=== PATIENT | female | born 1950 | race Hispanic/Latino ===

== ENCOUNTER 2018-10-17 10:39 | Inpatient (IN) | payer MEDICARE, OTHER ==
[2018-10-17] MEDS ORDERED: XYLOCAINE CARDIAC IV ONE (10:42)
[2018-10-17] MEDS ORDERED: ZEMURON IV ONE (10:42)
[2018-10-17] MEDS ORDERED: AMIDATE IV ONE (10:42)
[2018-10-17] MEDS ORDERED: NACL 0.9% 1000 ML IV ONE (10:53)
[2018-10-17] MEDS ORDERED: DECADRON IV ONE (10:55)
[2018-10-17] MEDS ORDERED: NACL 0.9% 500 ML IV PRN (10:57)
[2018-10-17] MEDS ORDERED: VASELINE LIP THERAPY TP PRN (10:57)
[2018-10-17] MEDS ORDERED: ARTIFICIAL TEARS OPHTH OINT OU PRN (10:57)
[2018-10-17] MEDS ORDERED: SUBLIMAZE IV PRN (10:57)
--- NOTE | 2018-10-17 10:59 | Emergency Department Report ---
ED General Adult HPI - General Chief complaint: Altered Mental Status Stated complaint: STROKE Time Seen by Provider: 10/17/18 10:52 Source: family, EMS (verbal report received from EMS.ems notes not available at time of chart dictation), RN notes reviewed Limitations: Altered Mental Status, Physical Limitation - History of Present Illness Initial comments: tHis is a 68-year-old female who typically follows with the [facility]. Patient has a past medical history of chronic respiratory failure, reported COPD, reported diabetes, high cholesterol, and uterine cancer as well as hypertension. The patient is brought to the hospital by emergency medical services as an out of hospital respiratory distress with altered mental status. As per EMS, last well time is at 12:00 PM yesterday. They report no hypoglycemia in the field. Upon arrival to the emergency room, the patient is somnolent, obtunded, with a Yogi Coma Scale of 3. She receives [id number] ventilation and is intubated using a video laryngoscopy and the assistance of a bougie catheter device. After she is intubated, the patients chest wall and abdomen were compressed, to allow for release of trapped air. Shortly thereafter, the airline pilot balloon malfunctioned on the initial endotracheal tube. Repeat video laryngoscopy was performed, and another 7.5 endotracheal tube was inserted over a bougie catheter, with direct visualization of the tube passing through the cords. Patient had good color change bilaterally, and tube placement was also confirmed by auscultation as well as post intubation x-ray of the chest. Patient was found to be hypothermic with a core temperature of 91.4. EMS indicated that they were instructed to call a code stroke prior to arrival as per the direction of their senior medical technologist. A noncontrast CT scan of the brain was negative for acute disease. EMS indica colleen that the patient may have a history of aortic disease, and therefore a noncontrast CT scan of the abdomen and pelvis was obtained, which demonstrated an unremarkable aorta, but an unanticipated right-sided pneumothorax. Concurrently, the patient became progressively more difficult to ventilate, and she was found to have high pressures. An emergent critical care consult was requested for pneumothorax, as well as respiratory failure, and abnormal ventilator parameters. Patient was normotensive, without evidence of imminent hemodynamic collapse. The critical care physician, Dr. Yung, recommended emergent placement of a chest tube. Therefore, an emergent right sided sterile pigtail catheter was placed in the right hemithorax, mid axillary line, superior to the eighth rib As soon as the pigtail catheter was placed, saturations improved to 97%. Shortly thereafter, family arrived. They were extensively briefed about the patient's numerous conditions, and her current medical status. As per verbal report from her daughter and , the patient has indicated that she would like to be DO NOT RESUSCITATE, DO NOT INTUBATE. However, this information was not available from the report from EMS, and the patient did not have this paperwork on her person, and there was no javier cation of this goal of care with the initial available information. Explained to family need for the aforementioned medical interventions given lack of paperwork, documentation, and lack of prior visits. Family has articulated understanding. They have signed DO NOT RESUSCITATE, DO NOT INTUBATE paperwork in the emergency room. indicates that he would not want any further invasive testing. They are amenable to IV fluids, antibiotics and supportive care at this time. Discussed with the [facility] physician, Dr. Gonzalez, who has authorized patient to be admitted to this facility given her numerous abnormalities. It is my pain that the patient is not currently medically suitable or stable for transport. Clinically doubt an acute stroke, especially as the patient's laboratory studies have demonstrated hypercarbic respiratory failure, and her numerous abnormalities, including aforementioned hypercarbic respiratory failure, pneumothorax and hypothermia. The patient is not a TPA candidate as she presented more than 4.5 hours after her last known well time. In addition, the patient's respiratory status was complicated, requiring numerous interventions and reevaluation as before her respiratory status could be stabilized. Given the aforementioned, it is my opinion that the patient would not be a suitable endovascular candidate as her emergent stabilization took her out of e 24-hour window for endovascular intervention. In addition, she has numerous other abnormalities which would adequately explain her altered mental status. In addition, it is my opinion that given her hypercarbia, pneumothorax, hypothermia is most likely secondary to environmental exposure, rather than bacteremia or meningitis. This, coupled with the family's articulated requests to avoid further invasive diagnostic testing, is why lumbar puncture will not be performed. The [facility] physician, Dr. German, will accept the patient to the medical service. Condition is critical. Laboratory studies have demonstrated hyperkalemia, and hyperglycemia, which will be treated medically. -: unknown Radiation: other Quality: other Consistency: other Improves with: other Worsens with: other Associated Symptoms: other - Related Data Home Medications Medication Instructions Recorded Confirmed Last Taken Albuterol Sulfate [Ventolin HFA] 2 puff IH Q4-6H PRN 10/17/18 10/17/18 Unknown Atorvastatin Calcium [Lipitor] 40 mg PO QPM 10/17/18 10/17/18 Unknown Fluticasone/Salmeterol [Advair 1 each IH BID 10/17/18 10/17/18 Unknown 500-50 Diskus] Ipratropium/Albuterol Sulfate 1 spray IH QID 10/17/18 10/17/18 Unknown [Combivent Respimat] Labetalol [Normodyne] 200 mg PO BID 10/17/18 10/17/18 Unknown Lisinopril/Hydrochlorothiazide 1 each PO BID 10/17/18 10/17/18 Unknown [Zestoretic 20-12.5 mg] Potassium Chloride [K-Tab ER] 10 meq PO QDAY 10/17/18 10/17/18 Unknown Allergies Allergy/AdvReac Type Severity Reaction Status Date / Time No Known Allergies Allergy Unverified 10/17/18 10:44 ED Review of Systems ROS: Stated complaint: STROKE Other details as noted in HPI Comment: Unobtainable due to pts medical conditions Constitutional: weakness Neurological: confusion ED Past Medical Hx - Medications Home Medications: Home Medications Medication Instructions Recorded Confirmed Last Taken Type Albuterol Sulfate [Ventolin HFA] 2 puff IH Q4-6H PRN 10/17/18 10/17/18 Unknown History Atorvastatin Calcium [Lipitor] 40 mg PO QPM 10/17/18 10/17/18 Unknown History Fluticasone/Salmeterol [Advair 1 each IH BID 10/17/18 10/17/18 Unknown History 500-50 Diskus] Ipratropium/Albuterol Sulfate 1 spray IH QID 10/17/18 10/17/18 Unknown History [Combivent Respimat] Labetalol [Normodyne] 200 mg PO BID 10/17/18 10/17/18 Unknown History Lisinopril/Hydrochlorothiazide 1 each PO BID 10/17/18 10/17/18 Unknown History [Zestoretic 20-12.5 mg] Potassium Chloride [K-Tab ER] 10 meq PO QDAY 10/17/18 10/17/18 Unknown History ED Physical Exam - General Limitations: Altered Mental Status, Physical Limitation General appearance: obtunded - Head Head exam: Present: atraumatic, normocephalic - Eye Eye exam: Present: normal appearance, PERRL - ENT ENT exam: Present: normal orophraynx, mucous membranes moist, normal external ear exam, other (copious secretions noted in the oropharynx) - Neck Neck exam: Present: normal inspection. Absent: tenderness, meningismus - Respiratory Respiratory exam: Present: respiratory distress, wheezes, rhonchi, decreased breath sounds - Cardiovascular Cardiovascular Exam: Present: normal rhythm, tachycardia, normal heart sounds. Absent: systolic murmur, diastolic murmur, rubs, gallop - GI/Abdominal GI/Abdominal exam: Present: soft, distended. Absent: tenderness, guarding, rebound, rigid, pulsatile mass - Rectal Rectal exam: Present: normal inspection - External exam: Present: normal external exam - Extremities Exam Extremities exam: Present: normal inspection, other (2+ pulses noted in the bilateral upper, lower extremities. Compartments soft. No long bony tenderness. The pelvis is stable.) - Back Exam Back exam: Present: normal inspection. Absent: tenderness, CVA tenderness (R), paraspinal tenderness, vertebral tenderness - Neurological Exam Neurological exam: Present: altered (initial presentation Yogi Coma Scale of 3), other (detailed neurologic examination not possible secondary to altered mental status.) - Psychiatric Psychiatric exam: Present: other (patient nonverbal) - Skin Skin exam: Present: warm, dry, intact, normal color. Absent: rash ED Course Vital Signs 10/17/18 10/17/18 10/17/18 11:07 11:16 11:30 Temperature 97.4 F L Pulse Rate 113 H 105 H 96 H Pulse Rate [ Anterior Bilateral Throughout] Respiratory 16 12 12 Rate Respiratory Rate [Anterior Bilateral Throughout] Blood Pressure 112/83 O2 Sat by Pulse 100 100 Oximetry 10/17/18 10/17/18 10/17/18 11:46 12:00 12:05 Temperature Pulse Rate 90 94 H Pulse Rate [ 91 H Anterior Bilateral Throughout] Respiratory 21 20 Rate Respiratory 14 Rate [Anterior Bilateral Throughout] Blood Pressure 205/106 154/88 O2 Sat by Pulse 100 98 Oximetry 10/17/18 10/17/18 10/17/18 12:12 12:39 12:46 Temperature Pulse Rate 89 86 86 Pulse Rate [ Anterior Bilateral Throughout] Respiratory 13 17 Rate Respiratory Rate [Anterior Bilateral Throughout] Blood Pressure 184/97 184/97 136/70 O2 Sat by Pulse 95 100 96 Oximetry 10/17/18 10/17/18 10/17/18 13:00 13:16 13:30 Temperature Pulse Rate 85 88 Pulse Rate [ Anterior Bilateral Throughout] Respiratory 20 15 21 Rate Respiratory Rate [Anterior Bilateral Throughout] Blood Pressure 152/72 138/63 120/65 O2 Sat by Pulse 83 L 76 L 96 Oximetry 10/17/18 10/17/18 10/17/18 13:45 14:00 14:15 Temperature Pulse Rate 83 90 91 H Pulse Rate [ Anterior Bilateral Throughout] Respiratory 7 L 19 17 Rate Respiratory Rate [Anterior Bilateral Throughout] Blood Pressure 124/71 126/75 116/69 O2 Sat by Pulse 94 97 96 Oximetry 10/17/18 10/17/18 10/17/18 14:30 14:45 15:00 Temperature Pulse Rate 94 H 97 H 96 H Pulse Rate [ Anterior Bilateral Throughout] Respiratory 17 18 15 Rate Respiratory Rate [Anterior Bilateral Throughout] Blood Pressure 123/76 116/68 104/62 O2 Sat by Pulse 94 96 94 Oximetry 10/17/18 10/17/18 10/17/18 15:15 15:30 15:45 Temperature Pulse Rate 102 H 101 H 101 H Pulse Rate [ Anterior Bilateral Throughout] Respiratory 25 H 25 H 25 H Rate Respiratory Rate [Anterior Bilateral Throughout] Blood Pressure 114/66 108/62 103/57 O2 Sat by Pulse 92 94 91 Oximetry 10/17/18 10/17/18 10/17/18 16:30 16:36 16:46 Temperature Pulse Rate 98 H 97 H 94 H Pulse Rate [ Anterior Bilateral Throughout] Respiratory 25 H 24 Rate Respiratory Rate [Anterior Bilateral Throughout] Blood Pressure 115/67 115/67 119/77 O2 Sat by Pulse 100 100 100 Oximetry 10/17/18 10/17/18 10/17/18 17:00 17:15 17:30 Temperature Pulse Rate 93 H 94 H 86 Pulse Rate [ Anterior Bilateral Throughout] Respiratory 25 H 25 H 24 Rate Respiratory Rate [Anterior Bilateral Throughout] Blood Pressure 119/76 111/70 100/59 O2 Sat by Pulse 100 99 98 Oximetry 10/17/18 10/17/18 10/17/18 17:39 17:45 18:00 Temperature Pulse Rate 92 H 93 H 93 H Pulse Rate [ Anterior Bilateral Throughout] Respiratory 24 25 H Rate Respiratory Rate [Anterior Bilateral Throughout] Blood Pressure 111/70 101/63 100/63 O2 Sat by Pulse 98 97 96 Oximetry 10/17/18 10/17/18 10/17/18 18:15 18:30 18:45 Temperature Pulse Rate 91 H 94 H 96 H Pulse Rate [ Anterior Bilateral Throughout] Respiratory 25 H 24 24 Rate Respiratory Rate [Anterior Bilateral Throughout] Blood Pressure 99/61 108/66 111/70 O2 Sat by Pulse Oximetry 10/17/18 10/17/18 10/17/18 19:00 19:15 19:30 Temperature Pulse Rate 96 H 94 H 94 H Pulse Rate [ Anterior Bilateral Throughout] Respiratory 25 H 25 H 25 H Rate Respiratory Rate [Anterior Bilateral Throughout] Blood Pressure 104/65 103/62 98/60 O2 Sat by Pulse 93 93 Oximetry 10/17/18 10/17/18 10/17/18 19:38 19:45 20:00 Temperature 99.3 F Pulse Rate 94 H 92 H Pulse Rate [ Anterior Bilateral Throughout] Respiratory 25 H 25 H Rate Respiratory Rate [Anterior Bilateral Throughout] Blood Pressure 96/61 96/63 O2 Sat by Pulse 94 Oximetry 10/17/18 10/17/18 10/17/18 20:15 20:30 20:45 Temperature Pulse Rate 91 H 91 H 88 Pulse Rate [ Anterior Bilateral Throughout] Respiratory 25 H 25 H 22 Rate Respiratory Rate [Anterior Bilateral Throughout] Blood Pressure 102/62 94/60 96/58 O2 Sat by Pulse 94 93 98 Oximetry 10/17/18 10/17/18 10/17/18 21:00 21:15 21:30 Temperature Pulse Rate 89 84 98 H Pulse Rate [ Anterior Bilateral Throughout] Respiratory 25 H 23 27 H Rate Respiratory Rate [Anterior Bilateral Throughout] Blood Pressure 97/60 97/58 105/66 O2 Sat by Pulse 93 93 94 Oximetry 10/17/18 10/17/18 10/17/18 21:45 22:00 22:15 Temperature Pulse Rate 88 88 89 Pulse Rate [ Anterior Bilateral Throughout] Respiratory 25 H 25 H 25 H Rate Respiratory Rate [Anterior Bilateral Throughout] Blood Pressure 94/59 100/58 98/60 O2 Sat by Pulse 93 93 93 Oximetry 10/17/18 10/17/18 10/17/18 22:30 22:45 23:00 Temperature Pulse Rate 92 H 92 H 89 Pulse Rate [ Anterior Bilateral Throughout] Respiratory 25 H 25 H 23 Rate Respiratory Rate [Anterior Bilateral Throughout] Blood Pressure 98/61 102/63 105/63 O2 Sat by Pulse 92 Oximetry 10/17/18 10/17/18 10/18/18 23:04 23:50 00:00 Temperature 99.7 F H Pulse Rate 92 H 103 H Pulse Rate [ Anterior Bilateral Throughout] Respiratory 16 Rate Respiratory Rate [Anterior Bilateral Throughout] Blood Pressure 105/63 O2 Sat by Pulse 96 100 Oximetry 10/18/18 00:22 Temperature Pulse Rate 103 H Pulse Rate [ Anterior Bilateral Throughout] Respiratory Rate Respiratory Rate [Anterior Bilateral Throughout] Blood Pressure O2 Sat by Pulse Oximetry - Chest Tube Chest Tube Location: superior to rib 8 Size of [place] Tube (cm): 10 Chest Tube Procedure: betadine prep, sterile drapes applied, sterile dressing a pplied Anesthesia: 1% Lidocaine w/ Epi Volume Anesthetic (ccs): 10 Hawkins of Air [place]: No Number of Attempts: 1 Tube Drainage: see nurses notes Tube Sutured to Skin: Yes - Intubation Time Out Performed: No (emergent) Sedative: Etomidate Mg Given: 20 Paralytic: Rocuronium Mg Given: 100 Laryngoscope: fiberoptic video scope Size: 3 Assist Device Used: Bougie ET Tube Size: 7.5 Other Airway Intervention: see history of present illness Tube Secured Depth (cm): 23 Tube Secured Location: teeth Tube Placement Confirmation: visualized tube passing t, equal breath sounds bilat, no breath sounds over epi, confirmation by capnometr Patient Tolerated Procedure: well Intubation Complications: difficult intubation, other (see history of present illness) ED Medical Decision Making - Lab Data Result diagrams: 10/17/18 11:31 10/18/18 16:15 Vital Signs 10/17/18 10/17/18 10/17/18 11:07 11:16 11:30 Temperature 97.4 F L Pulse Rate 113 H 105 H 96 H Pulse Rate [ Anterior Bilateral Throughout] Respiratory 16 12 12 Rate Respiratory Rate [Anterior Bilateral Throughout] Blood Pressure 112/83 O2 Sat by Pulse 100 100 Oximetry 10/17/18 10/17/18 10/17/18 11:46 12:00 12:05 Temperature Pulse Rate 90 94 H Pulse Rate [ 91 H Anterior Bilateral Throughout] Respiratory 21 20 Rate Respiratory 14 Rate [Anterior Bilateral Throughout] Blood Pressure 205/106 154/88 O2 Sat by Pulse 100 98 Oximetry 10/17/18 10/17/18 10/17/18 12:12 12:39 12:46 Temperature Pulse Rate 89 86 86 Pulse Rate [ Anterior Bilateral Throughout] Respiratory 13 17 Rate Respiratory Rate [Anterior Bilateral Throughout] Blood Pressure 184/97 184/97 136/70 O2 Sat by Pulse 95 100 96 Oximetry 10/17/18 10/17/18 10/17/18 13:00 13:16 13:30 Temperature Pulse Rate 85 88 Pulse Rate [ Anterior Bilateral Throughout] Respiratory 20 15 21 Rate Respiratory Rate [Anterior Bilateral Throughout] Blood Pressure 152/72 138/63 120/65 O2 Sat by Pulse 83 L 76 L 96 Oximetry 10/17/18 10/17/18 13:45 14:00 Temperature Pulse Rate 83 90 Pulse Rate [ Anterior Bilateral Throughout] Respiratory 7 L 19 Rate Respiratory Rate [Anterior Bilateral Throughout] Blood Pressure 124/71 126/75 O2 Sat by Pulse 94 97 Oximetry Lab Results 10/17/18 10/17/18 10/17/18 Range/Units 11:12 11:31 11:31 WBC 9.2 (4.5-11.0) K/mm3 RBC 4.75 (3.65-5.03) M/mm3 Hgb 13.7 (10.1-14.3) gm/dl Hct 43.2 H (30.3-42.9) % MCV 91 (79-97) fl MCH 29 (28-32) pg MCHC 32 (30-34) % RDW 16.2 H (13.2-15.2) % Plt Count 191 (140-440) K/mm3 Add Manual Diff Complete Total Counted 100 Seg Neutrophils % Diesel Pile 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 Operator Seg Neuts % (Manual) 93.0 H (40.0-70.0) % Band Neutrophils % 0 % Lymphocytes % (Manual) 4.0 L (13.4-35.0) % Reactive Lymphs % (Man) 0 % Monocytes % (Manual) 2.0 (0.0-7.3) % Eosinophils % (Manual) 0 (0.0-4.3) % Basophils % (Manual) 0 (0.0-1.8) % Metamyelocytes % 0 % Myelocytes % 1.0 % Promyelocytes % 0 % Blast Cells % 0 % Nucleated RBC % Not Reportable Seg Neutrophils # Man 8.6 H (1.8-7.7) K/mm3 Band Neutrophils # 0.0 K/mm3 Lymphocytes # (Manual) 0.4 L (1.2-5.4) K/mm3 Abs React Lymphs (Man) 0.0 K/mm3 Monocytes # (Manual) 0.2 (0.0-0.8) K/mm3 Eosinophils # (Manual) 0.0 (0.0-0.4) K/mm3 Basophils # (Manual) 0.0 (0.0-0.1) K/mm3 Metamyelocytes # 0.0 K/mm3 Myelocytes # 0.1 K/mm3 Promyelocytes # 0.0 K/mm3 Blast Cells # 0.0 K/mm3 WBC Morphology Not Reportable Hypersegmented Neuts Not Reportable Hyposegmented Neuts Not Reportable Hypogranular Neuts Not Reportable Smudge Cells Not Reportable Toxic Granulation Not Reportable Toxic Vacuolation Not Reportable Dohle Bodies Not Reportable Pelger-Huet Anomaly Not Reportable Harshad Rods Not Reportable Platelet Estimate Consistent w auto Clumped Platelets Not Reportable Plt Clumps, EDTA Not Reportable Large Platelets Not Reportable Giant Platelets Not Reportable Platelet Satelliting Not Reportable Plt Morphology Comment Not Reportable RBC Morphology Not Reportable Dimorphic RBCs Not Reportable Polychromasia Not Reportable Hypochromasia Not Reportable Poikilocytosis Not Reportable Anisocytosis 1+ Microcytosis Not Reportable Macrocytosis Not Reportable Spherocytes Not Reportable Pappenheimer Bodies Not Reportable Sickle Cells Not Reportable Target Cells Not Reportable Tear Drop Cells Not Reportable Ovalocytes Not Reportable Helmet Cells Not Reportable [place] Bodies Not Reportable Erskine Rings Not Reportable [place] Cells Not Reportable Bite Cells Not Reportable Crenated Cell Not Reportable Elliptocytes Not Reportable Acanthocytes (Spur) Not Reportable Rouleaux Not Reportable Hemoglobin C Crystals Not Reportable Schistocytes Not Reportable Malaria parasites Not Reportable Reji Bodies Not Reportable Hem Pathologist Commnt No PT 14.1 (12.2-14.9) Sec. INR 1.05 (0.87-1.13) APTT 20.1 L (24.2-36.6) Sec. Thrombin Time 17.0 (15.1-19.6) Sec. POC ABG pH (7.35-7.45) POC ABG pCO2 (35-45) POC ABG pO2 (80-105) FiO2 % Sodium (137-145) mmol/L Potassium (3.6-5.0) mmol/L Chloride (98-107) mmol/L Carbon Dioxide (22-30) mmol/L Anion Gap mmol/L BUN (7-17) mg/dL Creatinine (0.7-1.2) mg/dL Estimated GFR ml/min BUN/Creatinine Ratio % Glucose (65-100) mg/dL Lactic Acid (0.7-2.0) mmol/L Calcium (8.4-10.2) mg/dL Total Bilirubin (0.1-1.2) mg/dL AST (5-40) units/L ALT (7-56) units/L Alkaline Phosphatase (35-129) units/L Troponin T (0.00-0.029) ng/mL Total Protein (6.3-8.2) g/dL Albumin (3.9-5) g/dL Albumin/Globulin Ratio % Urine Color Yellow (Yellow) Urine Turbidity Clear (Clear) Urine pH 6.0 (5.0-7.0) Ur Specific [place] 1.025 (1.003-1.030) Urine Protein >2000 mg dl (Negative) mg/dL Urine Glucose (UA) >=500 (Negative) mg/dL Urine Ketones Tr (Negative) mg/dL Urine Blood Neg (Negative) Urine Nitrite Neg (Negative) Urine Bilirubin Neg (Negative) Urine Urobilinogen < 2.0 (<2.0) mg/dL Ur Leukocyte Esterase Neg (Negative) Urine WBC (Auto) 4.0 (0.0-6.0) /HPF Urine RBC (Auto) 2.0 (0.0-6.0) /HPF U Epithel Cells (Auto) < 1.0 (0-13.0) /HPF Hyaline Casts 1 /LPF Urine Mucus Few /HPF Salicylates (2.8-20.0) mg/dL Acetaminophen (10.0-30.0) ug/mL 10/17/18 10/17/18 10/17/18 Range/Units 11:31 11:31 11:31 WBC (4.5-11.0) K/mm3 RBC (3.65-5.03) M/mm3 Hgb (10.1-14.3) gm/dl Hct (30.3-42.9) % MCV (79-97) fl MCH (28-32) pg MCHC (30-34) % RDW (13.2-15.2) % Plt Count (140-440) K/mm3 Add Manual Diff Total Counted Seg Neutrophils % Seg Neuts % (Manual) (40.0-70.0) % Band Neutrophils % % Lymphocytes % (Manual) (13.4-35.0) % Reactive Lymphs % (Man) % Monocytes % (Manual) (0.0-7.3) % Eosinophils % (Manual) (0.0-4.3) % Basophils % (Manual) (0.0-1.8) % Metamyelocytes % % Myelocytes % % Promyelocytes % % Blast Cells % % Nucleated RBC % Seg Neutrophils # Man (1.8-7.7) K/mm3 Band Neutrophils # K/mm3 Lymphocytes # (Manual) (1.2-5.4) K/mm3 Abs React Lymphs (Man) K/mm3 Monocytes # (Manual) (0.0-0.8) K/mm3 Eosinophils # (Manual) (0.0-0.4) K/mm3 Basophils # (Manual) (0.0-0.1) K/mm3 Metamyelocytes # K/mm3 Myelocytes # K/mm3 Promyelocytes # K/mm3 Blast Cells # K/mm3 WBC Morphology Hypersegmented Neuts Hyposegmented Neuts Hypogranular Neuts Smudge Cells Toxic Granulation Toxic Vacuolation Dohle Bodies Pelger-Huet Anomaly Harshad Rods Platelet Estimate Clumped Platelets Plt Clumps, EDTA Large Platelets Giant Platelets Platelet Satelliting Plt Morphology Comment RBC Morphology Dimorphic RBCs Polychromasia Hypochromasia Poikilocytosis Anisocytosis Microcytosis Macrocytosis Spherocytes Pappenheimer Bodies Sickle Cells Target Cells Tear Drop Cells Ovalocytes Helmet Cells Urban-[place] Bodies Erskine Rings [place] Cells Bite Cells Crenated Cell Elliptocytes Acanthocytes (Spur) Rouleaux Hemoglobin C Crystals Schistocytes Malaria parasites Reji Bodies Hem Pathologist Commnt PT (12.2-14.9) Sec. INR (0.87-1.13) APTT (24.2-36.6) Sec. Thrombin Time (15.1-19.6) Sec. POC ABG pH (7.35-7.45) POC ABG pCO2 (35-45) POC ABG pO2 (80-105) FiO2 % Sodium 143 (137-145) mmol/L Potassium 5.8 H (3.6-5.0) mmol/L Chloride 86.5 L (98-107) mmol/L Carbon Dioxide 53 H* (22-30) mmol/L Anion Gap 9 mmol/L BUN 14 (7-17) mg/dL Creatinine 0.4 L (0.7-1.2) mg/dL Estimated GFR > 60 ml/min BUN/Creatinine Ratio 35 % Glucose 347 H (65-100) mg/dL Lactic Acid 1.20 (0.7-2.0) mmol/L Calcium 9.7 (8.4-10.2) mg/dL Total Bilirubin 0.50 (0.1-1.2) mg/dL AST 18 (5-40) units/L ALT 16 (7-56) units/L Alkaline Phosphatase 125 (35-129) units/L Troponin T < 0.010 (0.00-0.029) ng/mL Total Protein 7.9 (6.3-8.2) g/dL Albumin 4.3 (3.9-5) g/dL Albumin/Globulin Ratio 1.2 % Urine Color (Yellow) Urine Turbidity (Clear) Urine pH (5.0-7.0) Ur Specific [place] (1.003-1.030) Urine Protein (Negative) mg/dL Urine Glucose (UA) (Negative) mg/dL Urine Ketones (Negative) mg/dL Urine Blood (Negative) Urine Nitrite (Negative) Urine Bilirubin (Negative) Urine Urobilinogen (<2.0) mg/dL Ur Leukocyte Esterase (Negative) Urine WBC (Auto) (0.0-6.0) /HPF Urine RBC (Auto) (0.0-6.0) /HPF U Epithel Cells (Auto) (0-13.0) /HPF Hyaline Casts /LPF Urine Mucus /HPF Salicylates (2.8-20.0) mg/dL Acetaminophen (10.0-30.0) ug/mL 10/17/18 10/17/18 10/17/18 Range/Units 11:31 11:31 13:49 WBC (4.5-11.0) K/mm3 RBC (3.65-5.03) M/mm3 Hgb (10.1-14.3) gm/dl Hct (30.3-42.9) % MCV (79-97) fl MCH (28-32) pg MCHC (30-34) % RDW (13.2-15.2) % Plt Count (140-440) K/mm3 Add Manual Diff Total Counted Seg Neutrophils % Seg Neuts % (Manual) (40.0-70.0) % Band Neutrophils % % Lymphocytes % (Manual) (13.4-35.0) % Reactive Lymphs % (Man) % Monocytes % (Manual) (0.0-7.3) % Eosinophils % (Manual) (0.0-4.3) % Basophils % (Manual) (0.0-1.8) % Metamyelocytes % % Myelocytes % % Promyelocytes % % Blast Cells % % Nucleated RBC % Seg Neutrophils # Man (1.8-7.7) K/mm3 Band Neutrophils # K/mm3 Lymphocytes # (Manual) (1.2-5.4) K/mm3 Abs React Lymphs (Man) K/mm3 Monocytes # (Manual) (0.0-0.8) K/mm3 Eosinophils # (Manual) (0.0-0.4) K/mm3 Basophils # (Manual) (0.0-0.1) K/mm3 Metamyelocytes # K/mm3 Myelocytes # K/mm3 Promyelocytes # K/mm3 Blast Cells # K/mm3 WBC Morphology Hypersegmented Neuts Hyposegmented Neuts Hypogranular Neuts Smudge Cells Toxic Granulation Toxic Vacuolation Dohle Bodies Pelger-Huet Anomaly Harshad Rods Platelet Estimate Clumped Platelets Plt Clumps, EDTA Large Platelets Giant Platelets Platelet Satelliting Plt Morphology Comment RBC Morphology Dimorphic RBCs Polychromasia Hypochromasia Poikilocytosis Anisocytosis Microcytosis Macrocytosis Spherocytes Pappenheimer Bodies Sickle Cells Target Cells Tear Drop Cells Ovalocytes Helmet Cells [place] Bodies [place] Rings [place] Cells Bite Cells Crenated Cell Elliptocytes Acanthocytes (Spur) Rouleaux Hemoglobin C Crystals Schistocytes Malaria parasites Reji Bodies Hem Pathologist Commnt PT (12.2-14.9) Sec. INR (0.87-1.13) APTT (24.2-36.6) Sec. Thrombin Time (15.1-19.6) Sec. POC ABG pH 7.168 L (7.35-7.45) POC ABG pCO2 > 130.0 H (35-45) POC ABG pO2 67 L (80-105) FiO2 70 % Sodium (137-145) mmol/L Potassium (3.6-5.0) mmol/L Chloride (98-107) mmol/L Carbon Dioxide (22-30) mmol/L Anion Gap mmol/L BUN (7-17) mg/dL Creatinine (0.7-1.2) mg/dL Estimated GFR ml/min BUN/Creatinine Ratio % Glucose (65-100) mg/dL Lactic Acid (0.7-2.0) mmol/L Calcium (8.4-10.2) mg/dL Total Bilirubin (0.1-1.2) mg/dL AST (5-40) units/L ALT (7-56) units/L Alkaline Phosphatase (35-129) units/L Troponin T (0.00-0.029) ng/mL Total Protein (6.3-8.2) g/dL Albumin (3.9-5) g/dL Albumin/Globulin Ratio % Urine Color (Yellow) Urine Turbidity (Clear) Urine pH (5.0-7.0) Ur Specific [place] (1.003-1.030) Urine Protein (Negative) mg/dL Urine Glucose (UA) (Negative) mg/dL Urine Ketones (Negative) mg/dL Urine Blood (Negative) Urine Nitrite (Negative) Urine Bilirubin (Negative) Urine Urobilinogen (<2.0) mg/dL Ur Leukocyte Esterase (Negative) Urine WBC (Auto) (0.0-6.0) /HPF Urine RBC (Auto) (0.0-6.0) /HPF U Epithel Cells (Auto) (0-13.0) /HPF Hyaline Casts /LPF Urine Mucus /HPF Salicylates < 0.3 L (2.8-20.0) mg/dL Acetaminophen < 5.0 L (10.0-30.0) ug/mL 10/17/18 Range/Units 13:59 WBC (4.5-11.0) K/mm3 RBC (3.65-5.03) M/mm3 Hgb (10.1-14.3) gm/dl Hct (30.3-42.9) % MCV (79-97) fl MCH (28-32) pg MCHC (30-34) % RDW (13.2-15.2) % Plt Count (140-440) K/mm3 Add Manual Diff Total Counted Seg Neutrophils % Seg Neuts % (Manual) (40.0-70.0) % Band Neutrophils % % Lymphocytes % (Manual) (13.4-35.0) % Reactive Lymphs % (Man) % Monocytes % (Manual) (0.0-7.3) % Eosinophils % (Manual) (0.0-4.3) % Basophils % (Manual) (0.0-1.8) % Metamyelocytes % % Myelocytes % % Promyelocytes % % Blast Cells % % Nucleated RBC % Seg Neutrophils # Man (1.8-7.7) K/mm3 Band Neutrophils # K/mm3 Lymphocytes # (Manual) (1.2-5.4) K/mm3 Abs React Lymphs (Man) K/mm3 Monocytes # (Manual) (0.0-0.8) K/mm3 Eosinophils # (Manual) (0.0-0.4) K/mm3 Basophils # (Manual) (0.0-0.1) K/mm3 Metamyelocytes # K/mm3 Myelocytes # K/mm3 Promyelocytes # K/mm3 Blast Cells # K/mm3 WBC Morphology Hypersegmented Neuts Hyposegmented Neuts Hypogranular Neuts Smudge Cells Toxic Granulation Toxic Vacuolation Dohle Bodies Pelger-Huet Anomaly Harshad Rods Platelet Estimate Clumped Platelets Plt Clumps, EDTA Large Platelets Giant Platelets Platelet Satelliting Plt Morphology Comment RBC Morphology Dimorphic RBCs Polychromasia Hypochromasia Poikilocytosis Anisocytosis Microcytosis Macrocytosis Spherocytes Pappenheimer Bodies Sickle Cells Target Cells Tear Drop Cells Ovalocytes Helmet Cells [place] Bodies [place] Rings [place] Cells Bite Cells Crenated Cell Elliptocytes Acanthocytes (Spur) Rouleaux Hemoglobin C Crystals Schistocytes Malaria parasites Reji Bodies Hem Pathologist Commnt PT (12.2-14.9) Sec. INR (0.87-1.13) APTT (24.2-36.6) Sec. Thrombin Time (15.1-19.6) Sec. POC ABG pH 7.176 L (7.35-7.45) POC ABG pCO2 > 130.0 H (35-45) POC ABG pO2 67 L (80-105) FiO2 70 % Sodium (137-145) mmol/L Potassium (3.6-5.0) mmol/L Chloride (98-107) mmol/L Carbon Dioxide (22-30) mmol/L Anion Gap mmol/L BUN (7-17) mg/dL Creatinine (0.7-1.2) mg/dL Estimated GFR ml/min BUN/Creatinine Ratio % Glucose (65-100) mg/dL Lactic Acid (0.7-2.0) mmol/L Calcium (8.4-10.2) mg/dL Total Bilirubin (0.1-1.2) mg/dL AST (5-40) units/L ALT (7-56) units/L Alkaline Phosphatase (35-129) units/L Troponin T (0.00-0.029) ng/mL Total Protein (6.3-8.2) g/dL Albumin (3.9-5) g/dL Albumin/Globulin Ratio % Urine Color (Yellow) Urine Turbidity (Clear) Urine pH (5.0-7.0) Ur Specific [place] (1.003-1.030) Urine Protein (Negative) mg/dL Urine Glucose (UA) (Negative) mg/dL Urine Ketones (Negative) mg/dL Urine Blood (Negative) Urine Nitrite (Negative) Urine Bilirubin (Negative) Urine Urobilinogen (<2.0) mg/dL Ur Leukocyte Esterase (Negative) Urine WBC (Auto) (0.0-6.0) /HPF Urine RBC (Auto) (0.0-6.0) /HPF U Epithel Cells (Auto) (0-13.0) /HPF Hyaline Casts /LPF Urine Mucus /HPF Salicylates (2.8-20.0) mg/dL Acetaminophen (10.0-30.0) ug/mL - EKG Data -: EKG Interpreted by Tx EKG shows normal: sinus rhythm Rate: normal - EKG Data When compared to previous EKG there are: previous EKG unavailable 10/17/18 15:17 No prior available for comparison. Borderline rightward axis. QTC prolonged. Motion artifact. Not consistent with ST elevation myocardial infarction. There is no prior for comparison. - Radiology Data Radiology results: report reviewed, image reviewed Noncontrast CT scan of the brain is negative for acute disease. CT scan of the abdomen pelvis shows right-sided pneumothorax. Otherwise no acute disease. X-ray of the chest, post intubation, demonstrates appropriate placement of endotracheal tube, oral gastric tube, no obvious pneumothorax - Medical Decision Making Differential diagnosis, including but not limited to: Respiratory failure, pneumonia, pneumothorax, urinary tract infection, hypercarbia Assessment and plan: 68-year-old female with hypercarbic respiratory failure, right-sided pneumothorax, hemodynamically stable without fever. We are continuing supportive care and supportive interventions. Critical care physician Dr Yung, has been consulted, and he has indicated that he will follow-up on the CT scan of the chest. Prognosis is poor. Critical Care Time: Yes Critical care time in (mins) excluding proc time.: 120 Critical care attestation.: If time is entered above; I have spent that time in minutes in the direct care of this critically ill patient, excluding procedure time. ED Disposition Clinical Impression: Hypercapnic respiratory failure, Pneumothorax on right Disposition: [id number] OP ADMIT IP TO THIS HOSP Is pt being admited?: Yes Condition: Critical
[2018-10-17] MEDS ORDERED: PROVENTIL IH ONE ×2 (11:45→12:12)
[2018-10-17] MEDS ORDERED: ATROVENT IH ONE ×2 (11:45→12:12)
[2018-10-17 11:52] LABS: Bilirubin,Urine NEG (Negative); Blood,Urine NEG (Negative); Color,Urine Yellow (Yellow); Hyaline Casts,Urine 1 /LPF; Mucus,Urine FEW /HPF; Urobilinogen,Urine < 2.0 mg/dL (<2.0)
[2018-10-17 11:57] LABS: Protein,Urine >2000 mg dL mg/dL (Negative)
[2018-10-17 12:06] LABS: Hematocrit 43.2 % (30.3-42.9); Hemoglobin 13.7 gm/dl (10.1-14.3); Mean Corpuscular HGB Conc 32 % (30-34); Mean Corpuscular Volume 91 fl (79-97); Platelet Count 191 K/mm3 (140-440); Red Blood Count 4.75 M/mm3 (3.65-5.03); Red Cell Distribution Width 16.2 % (13.2-15.2)
[2018-10-17] MEDS ORDERED: NACL 0.9% 500 ML 500 ML IV ONE (12:12)
[2018-10-17] MEDS ORDERED: NACL 0.9% 250ML 250 ML IV ONE (12:12)
[2018-10-17 12:17] LABS: INR 1.05 (0.87-1.13)
[2018-10-17 12:18] LABS: Partial Thromboplastin Time 20.1 Sec. (24.2-36.6)
[2018-10-17] MEDS: fentaNYL DRIP Premix 2,000 MCG/100 ML BAG IV SCH ×2 (12:20→18:18)
[2018-10-17 12:29] LABS: Alanine Aminotransferase 16 units/L (7-56); Albumin 4.3 g/dL (3.9-5); BUN/Creatinine Ratio 35; Blood Urea Nitrogen 14 mg/dL (7-17); Calcium 9.7 mg/dL (8.4-10.2); Hemolysis Index 41
[2018-10-17 12:35] LABS: Basophils % (Manual) 0 % (0.0-1.8); Eosinophils % (Manual) 0 % (0.0-4.3); Myelocytes # (Manual) 0.1 K/mm3; Total Cells Counted 100
[2018-10-17 12:36] LABS: Anisocytosis 1+; Platelet Estimate Consistent w Auto
[2018-10-17] MEDS: ROCEPHIN/NS 2 GM/100 ML 2 GM/100 ML BAG IV SCH (12:47)
[2018-10-17] MEDS ORDERED: LIDOCAINE 1.5%/EPI 1:200,000 INFILTRATI ONE (12:53)
[2018-10-17] MEDS ORDERED: HumuLIN R IV ONE (12:53)
--- NOTE | 2018-10-17 13:02 | Cat Scan Report ---
FINAL REPORT EXAM: CT ABDOMEN PELVIS WO CON HISTORY: sepsis hx of aneurysm TECHNIQUE: CT of the abdomen and pelvis without IV contrast. Coronal and sagittal reconstructed imag ing provided. PRIORS: None currently available. FINDINGS: ABDOMEN: Partially imaged right pneumothorax. 1.1 cm pulmonary nodule in the right lower lobe series 2:32. 0.7 cm possible pulmonary nodule in the right middle lobe series 2:1. Partially imaged. Dsay-bi-ruqayqvg cardiomegaly. No pericardial effusion. Enteric tube is present within the stomach. Otherwise unremarkable. Gallbladder: Fqhn-tp-ggnyhsuojs distended. Layering density suggest stones and sludge. No obvious wal l thickening. Common bile duct does not appear prominent. No obvious ductal stone. Kidneys: Low-density lesion in the mid right renal cortex measures 1.3 cm. Punctate stone mid right k idney measures 3.7 mm. No hydronephrosis. 2.3 mm stone mid left kidney. No hydronephrosis. Liver, spleen, and pancreas are unremarkable. Adrenals: Left adrenal nodule measures 2.7 cm and is indeterminate. Right adrenal gland is unremarkab le. IVC is unremarkable. Moderate aortic atherosclerotic disease. No aneurysm. No periaortic or retroperitoneal mass or adenopathy. Urrv-mx-mffbfmyz stool in the colon. Left colon diverticulosis. No wall thickening. No inflammatory c hanges. Terminal ileum is unremarkable. Appendix is not clearly identified. No pericecal inflammatory changes. Small bowel loops are unremarkable. No obstructive pattern. No air-fluid levels. Diastasis recti with a broad-based protrusion. No strangulation. Mesentery is unremarkable. No free air. No free fluid. PELVIS: Bladder is collapsed around a Blanco catheter and not well evaluated. Suspect prior hysterectomy. There is no pelvic mass or adenopathy. Inguinal regions are unremarkable. Bones: No suspicious osseous lesions on this limited examination of the skeleton. Metastatic disease better evaluated with bone scan. Degenerative changes are in the spine. IMPRESSION: Partially imaged right pneumothorax. Right pulmonary nodules. Further imaging with a CT thorax may be helpful clinically indicated. Distended gallbladder with gallstones. Please correlate with ultrasound for cholecystitis if clinical ly indicated. Indeterminate left adrenal nodule. Punctate left renal stone. No hydronephrosis. No ureteral stones. October 17, 2018 at PST: I discussed the findings over phone with Dr. Campos.
[2018-10-17] MEDS ORDERED: DIPRIVAN 10 MG/ML 1,000 MG/100 ML BOTTLE IV ONE ×2 (13:04→22:52)
[2018-10-17] MEDS ORDERED: XYLOCAINE 1%/ EPI 1:100,000 INFILTRATI ONE (13:11)
--- NOTE | 2018-10-17 13:25 | Consultation ---
History of Present Illness Consult date: 10/17/18 Requesting physician: MARTINEZ STAPLETON Reason for consult: other (Acute on Chronic Hypoxemic Resp Failure; Acute COPD exacerbation; R. Pneumothorax) History of present illness: PCCM CONSULT NOTE (Full dictation # [id number]) Please see dictated notes for full details Medications and Allergies Allergies Allergy/AdvReac Type Severity Reaction Status Date / Time No Known Allergies Allergy Unverified 10/17/18 10:44 Active Meds: Active Medications Fentanyl (Sublimaze) 50 mcg IV Q10MIN PRN PRN Reason: ANALGESIA Last Admin: 10/17/18 13:05 Dose: 50 mcg Documented by: Hydrophilic Ointment (Vaseline Lip Therapy) 1 applic TP Q2HR PRN PRN Reason: Dry Lips Acyclovir 800 mg/ Sodium (Chloride) 116 mls @ 100 mls/hr IV Q8HR MIGUE; Protocol Ceftriaxone Sodium (Rocephin/Ns 2 Gm/100 Ml) 2 gm in 100 mls @ 200 mls/hr IV Q 12HR MIGUE; Protocol Last Admin: 10/17/18 12:47 Dose: 200 mls/hr Documented by: Vancomycin HCl 2,000 mg/ (Sodium Chloride) 540 mls @ 333 mls/hr IV ONCE ONE; Protocol Stop: 10/17/18 15:37 Fentanyl Citrate (Fentanyl Drip Premix) 2,000 mcg in 100 mls @ 5.695 mls/hr IV TITR MIGUE; Protocol Last Titration: 10/17/18 12:35 Dose: 2 mcg/kg/hr, 11.39 mls/hr Documented by: Multi-Ingred Cream/Lotion/Oil/Oint (Artificial Tears Ophth Oint) 1 applic OU Q4HR PRN PRN Reason: Dry Eye(s) Sodium Chloride (Nacl 0.9% 500 Ml) 5 ml IV DIRECT PRN PRN Reason: [employer]ERIAL [employer]ING [employer]INNER Physical Examination Vital signs: Vital Signs Temp Pulse Resp BP 97.4 F L 113 H 16 112/83 10/17/18 11:07 10/17/18 11:07 10/17/18 11:07 10/17/18 11:07 Results - Laboratory Findings CBC and BMP: 10/17/18 11:31 10/17/18 11:31 PT/INR, D-dimer PT 14.1 Sec. (12.2-14.9) 10/17/18 11:31 INR 1.05 (0.87-1.13) 10/17/18 11:31 Abnormal lab findings: Abnormal Labs 10/17/18 10/17/18 10/17/18 11:31 11:31 11:31 Hct 43.2 H RDW 16.2 H Seg Neuts % (Manual) 93.0 H Lymphocytes % (Manual) 4.0 L Seg Neutrophils # Man 8.6 H Lymphocytes # (Manual) 0.4 L APTT 20.1 L Potassium 5.8 H Chloride 86.5 L Carbon Dioxide 53 H* Creatinine 0.4 L Glucose 347 H Salicylates Acetaminophen 10/17/18 10/17/18 11:31 11:31 Hct RDW Seg Neuts % (Manual) Lymphocytes % (Manual) Seg Neutrophils # Man Lymphocytes # (Manual) APTT Potassium Chloride Carbon Dioxide Creatinine Glucose Salicylates < 0.3 L Acetaminophen < 5.0 L
--- NOTE | 2018-10-17 13:35 | Cat Scan Report ---
FINAL REPORT EXAM: CT HEAD/BRAIN WO CON HISTORY: neuro deficits <6hrs or sx present upon awakening TECHNIQUE: CT of the Head without IV contrast. PRIORS: None currently available. FINDINGS: There is no evidence for acute ischemia. There is no hemorrhage. There is no midline shift. There is no hydrocephalus. There is no mass. Age appropriate verduzco-white matter attenuation is noted. There is no calvarial fracture. The temporal bones demonstrate aerated mastoid air cells. The middle ears appear unremarkable. Air-fluid level in the right and left maxillary sinuses. Vdhn-vd-gtjjrqyx mucosal thickening in both ethmoid sinuses. Fluid and debris noted within the nasal cavity. Right maxillary sinus retention cyst or polyp measures 11 mm. Globes are intact. IMPRESSION: No acute intracranial findings. Sinus disease.
[2018-10-17] MEDS ORDERED: SODIUM BICARBONATE IV ONE (14:00)
[2018-10-17] MEDS ORDERED: VANCOMYCIN 2,000 MG in NACL 0.9% 500 ML 500 ML IV ONE (14:00)
[2018-10-17] MEDS ORDERED: KIONEX PR ONE (14:00)
[2018-10-17] MEDS ORDERED: DIPRIVAN 10 MG/ML 1,000 MG/100 ML BOTTLE IV SCH (14:00)
[2018-10-17] MEDS ORDERED: ZOVIRAX 800 MG in NACL 0.9% 100 ML IV SCH (14:00)
[2018-10-17] MEDS ORDERED: HumuLIN R ONE (15:35)
--- NOTE | 2018-10-17 15:53 | XRay Report ---
AP supine chest: Tube placement Comparison is made to an earlier exam of the same date at 11:34 AM. There is a somewhat coarse overall bronchovascular pattern throughout both lungs with no focal findings. Endotracheal and nasogastric tubes are in good positions and these findings are unchanged. There has been interval placement of a right chest tube entering the lateral mid chest. There is no pneumothorax and no fluid accumulation identified. Impression: Well-positioned right chest tube.
[2018-10-17] MEDS ORDERED: fentaNYL DRIP Premix 2,000 MCG/100 ML BAG IV ONE ×2 (18:14→22:52)
--- NOTE | 2018-10-17 19:18 | Cat Scan Report ---
FINAL REPORT EXAM: CT ANGIO CHEST HISTORY: Acute Hypoxemic Resp failure on MVS TECHNIQUE: CTA of the chest was performed after the administration of intravenous contrast. Rotating MIPS were included. Reconstructions were included in the coronal and sagittal planes. PRIORS: None. FINDINGS: Pulmonary arteries and thoracic aorta: The study is adequate for diagnostic purposes. No central or s egmental pulmonary embolism. The thoracic aorta is normal in caliber. Mild atherosclerotic calculi ar e seen in the thoracic aorta. Lungs and airways: Small right pneumothorax is again seen. A right-sided thoracostomy tube is in plac e. Note that thoracostomy tube courses through the right lung with the tip lying in the central aspec t of the right upper lobe. No pleural effusion. Diffuse interlobular septal thickening is seen. Patch y opacities are seen in the posterior aspects of both lungs. The endotracheal tube tip projects in th e mid thoracic trachea. Focal patchy opacities are seen along the periphery of the right upper and mi ddle lobes. The airways are patent. No bronchiectasis. There is a 12 millimeter right lower lobe pulm onary nodule on series 2, image 103. There is a 9 millimeter right lower lobe pulmonary nodule on ser ies 2, image 70. There is a focal nodule in the medial aspect of the left upper lobe measuring 14 mil limeters on series 2, image 25. Probable partially calcified left lower lobe granuloma is seen. A non calcified left lower lobe pulmonary nodule is seen on series 2, image 56 measuring 6 millimeters. Mediastinum, heart, pericardium: No mediastinal lymphadenopathy. No cardiac chamber enlargement. No p ericardial effusion. Mild coronary artery calculi. Thoracic inlet, chest wall, axilla: No chest wall masses. The visualized portions of the thyroid glan d demonstrate no focal lesion. No axillary lymphadenopathy. Upper abdomen: The visualized structures demonstrate no specific abnormality. Bones: Degenerative changes are seen in the spine. IMPRESSION: 1. No central or segmental pulmonary emboli. 2. Small right pneumothorax with right thoracostomy tube in place. Note that the right-sided thoracos valeriano tube tip lies within central aspect of the right upper lobe. 3. Multiple bilateral pulmonary nodules with the largest in the left upper lobe measuring 14 millimet ers. Recommend follow-up chest CT at 3-6 months. If the patient is low risk, consider additional ches t CT at 18-24 months. In a high risk patient, recommend subsequent follow-up at 18-24 months. 4. Findings of bilateral pulmonary edema versus atypical pneumonia. 5. Bilateral dependent opacities most likely represent atelectasis although pneumonia is not excluded . 6. Mild coronary artery calculi.
--- NOTE | 2018-10-17 21:28 | Consultation ---
PULMONARY CRITICAL CARE CONSULT NOTE CONSULTING PHYSICIAN: Clyde Campos MD REASON FOR CONSULTATION: Nfyou-ei-dxvgato hypoxemic respiratory failure, now on mechanical ventilatory support. CHIEF COMPLAINT AND HISTORY OF PRESENT ILLNESS: As follows: The patient is a 68-year-old female with past medical history according to significant for home oxygen-dependent chronic obstructive lung disease and he states that he was unable to arouse her this morning. She really had not displayed any signs or symptoms of any illness the night before. He denied any cough. He denied any expectoration. He denied any chest pains. He called the EMS because they could not arouse her. She was brought into the Emergency Room. When showed up in the Emergency Room, she was essentially obtunded, breath sounds were not being heard well. She was not protecting her airway. Decision was made to emergently intubate her and we were asked to assist with management. When I stopped by to see her, she was beginning to wake up. She nodded no to chest pain. states that she does have her 10+ pack year tobacco smoking history, but quit smoking about 20 years ago. As far as she knows, she had been compliant with her oxygen therapy and all her other medications. There were no sick contacts at home. No cough, no expectoration, no new onset leg pain or swelling. When I stopped by to see her again, she was on the mechanical ventilator, still requiring about 70% FiO2 and on pressure control mode because reportedly she had high peak pressures. This really is much of the history of this presentation as I have. PAST MEDICAL HISTORY: Chronic obstructive lung disease. She is obese. Otherwise, unknown. PAST SURGICAL HISTORY: Unknown. MEDICATIONS: She was on at the time I stopped by to see her were reviewed, pertinent medications included the following: She was on acyclovir 800 mg IV q. 8 hours scheduled. She was on Rocephin 2 grams IV every 12 hours. She was on fentanyl drip at 3 mcg/kg/hour. She had received vancomycin 2 grams IV x 1. ALLERGIES: No known drug allergies. DIET: Obese lady. Family denies acute weight loss or gain preceding few weeks to months. FAMILY AND SOCIAL HISTORY: Apparently lives in the community. No current alcohol, tobacco, or illicit drug use or abuse. There is a 10+ pack year remote tobacco smoking history. Family history, otherwise, noncontributory. REVIEW OF SYSTEMS: Unobtainable secondary to the patient's medical and mental condition. Since she has been here, no gross hematochezia or melena, no gross hematuria, no hematemesis, no hemoptysis, no witnessed seizures. Review of systems otherwise unobtainable. PHYSICAL EXAMINATION: VITAL SIGNS: At presentation, she was hypothermic, temperature was 91.3 rectally with a pulse of 94, respiratory rate of 13 and blood pressure was 154/88, O2 sats were 98% at the time I saw her, that was on 70% FiO2. When I saw her, she was on the pressure control mode of ventilation with a set rate of 20 and I believe a PEEP of 6 and again 70% FiO2. GENERAL: She is an obese, elderly-looking female, normocephalic, atraumatic, on the mechanical ventilator with mildly increased respiratory effort. HEAD, EYES, EARS, NOSE AND THROAT: She is anicteric. No conjunctival erythema. Oropharynx is moist. Endotracheal tube is at the lips around 23 cm. She does have a large neck circumference without thyromegaly. LUNGS: Auscultation of both lung paula, very tight bilateral air movement, prolonged expiratory phase, tight expiratory wheezing, diminished breath sounds in both lung paula, perhaps, in retrospect, right greater than left. HEART: Heart sounds 1 and 2 are heard, regular rate and rhythm at the time of my evaluation without rubs or murmurs. ABDOMEN: Soft, full, protuberant. Bowel sounds are positive, nontender. No palpable hepatosplenomegaly. EXTREMITIES: Without overt digital clubbing, cyanosis, or pedal edema. Dorsalis pedis pulses are palpable bilaterally and 2+. NEUROLOGIC: Pupils are equal, round, about 3 mm, reactive to light. Extraocular muscle movements are intact. She had spontaneous movements to all her extremities. The skin was of normal turgor without overt cellulitis or rash. LABORATORY DATA: From my review, white cell count 9200, hemoglobin 13.7, hematocrit 43.2, platelet count 191. No band forms reported. Serum sodium is 143, potassium 5.8, chloride 87, bicarbonate 53, BUN 14, creatinine 0.4, glucose 347. Liver function tests essentially within normal limits. INR within normal limits. Troponin within normal limits. Urinalysis, trace ketones, negative for nitrites and leukocyte esterase. Aspirin and Tylenol levels were within normal limits. No microbiology studies. A CT scan was done of the head. I have reviewed the radiologist's interpretation. A CT scan was also done of the abdomen and pelvis. I have reviewed the long windows on the CT of the abdomen, which demonstrated pneumothorax. The official reading, otherwise, is pending. I do not see any obvious free air in the abdomen or any evidence of a pneumoperitoneum and CT scan of the head was read as no acute intracranial finding. ASSESSMENT AND PLAN: 1. Acute on chronic hypoxemic respiratory failure. 2. Acute chronic obstructive pulmonary disease exacerbation, likely due to #3. 3. Right pneumothorax, spontaneous. 4. Morbid obesity. 5. Hyperkalemia. 6. Elevated serum glucose. 7. Acute encephalopathy. PLAN: The Emergency Room physician has been kind enough to place a chest tube with improvement in the oxygenation. I will continue full mechanical ventilatory support. I will, however, switch her over to the assist control mode of ventilation and target low tidal volumes. I do not want to take the risk to leave her on pressure control without obvious control over the amount of volume that she gets. I will schedule long-acting bronchodilators, inhaled corticosteroids as well as short-acting bronchodilators. I will put her on a quick course of systemic steroids. Oxygen will be weaned to keep sats greater than or equal to about 90%. Aspiration precautions. Ventilator-associated pneumonia bundle has been instituted. Enteral nutrition will be the feeding modality of choice. A dedicated CT scan of her chest. A CT angio will be done to rule out venous thromboembolic phenomenon as a contributor to her decompensation. We will get a stat D-dimer level also. She will be placed on empiric Levaquin monotherapy for severe COPD exacerbation. I will add Zithromax to her Rocephin to treat community-acquired pneumonia empirically. I think she has been managed for possible acute encephalopathy. Infectious Disease consultation will be obtained and I will see if we can deescalate antibiotics from that standpoint. She is going to be placed on GI and DVT prophylaxis. Flu and pneumonia vaccination will be addressed per protocol. Hopefully, we can quickly liberate her from the mechanical ventilator. The care plan has been discussed with the patient and her . They are in agreement. She is critically ill on life-sustaining interventions including mechanical ventilatory support, at high risk of from cardiopulmonary system decompensation. At this time, I spent about 35-40 minutes of critical care time without overlap and excluding any procedural time that may be necessary. We will work towards getting the chest tube out or placing a larger bore chest tube if that is required, but she has responded appropriately at this time. Once again, thank you, Dr. Campos for the consult. We will follow along and make further recommendations as picture progresses/becomes clearer. JOB# [id number] JULIANNA/STEWART ROMERO
[2018-10-18] MEDS ORDERED: PROAIR IH PRN (01:27)
[2018-10-18] MEDS ORDERED: NON-FORMULARY (Lisinopril/Hydrochlorothiazide [Zestoretic 20-12.5 Mg] 1 EACH) PO SCH (01:30)
--- NOTE | 2018-10-18 01:33 | Event Note ---
Date: 10/17/18 See Dictated H/p in reports Acute resp failure with Hypercarbia Rt Pneumothorax HTN Critical care time 40 min Pt is DNR which came to be known after intubation
[2018-10-18] MEDS ORDERED: PROVENTIL IH PRN (01:47)
[2018-10-18] MEDS: fentaNYL DRIP Premix 2,000 MCG/100 ML BAG IV SCH (02:05)
--- NOTE | 2018-10-18 02:24 | History and Physical Report ---
CHIEF COMPLAINT: Altered mental status. HISTORY OF PRESENT ILLNESS: This is a 68-year-old female with end-stage lung disease on DNR who had decreased mentation at around 12:00 p.m. yesterday. Then the patient has been in respiratory distress. The patient brought in for severe respiratory distress. In the Emergency Room, the patient was somnolent and obtunded with Yogi coma scale of 3. The patient was intubated by the ER physician using the video laryngoscopy. The patient's x-ray/CAT scan showed a right-sided pneumothorax. Chest tube was placed in the Emergency Room. The patient's DNR status was not known and hence intubated. No fever or chills. Saturations improved to 97% in the Emergency Room. PAST MEDICAL HISTORY: Significant for severe COPD, end-stage lung disease, hyperlipidemia, and hypertension. CURRENT MEDICATIONS: Atorvastatin 40 mg once a day, Advair 500/50 one puff each twice a day, Combivent Respimat 1 spray p.o. q.i.d., Normodyne 200 mg twice a day, lisinopril/hydrochlorothiazide 20/12.5 one tablet daily, potassium 10 mEq daily. PAST SURGICAL HISTORY: Unavailable. FAMILY HISTORY: Hypertension. SOCIAL HISTORY: She used to smoke until 20 years ago. Smoked about a pack to pack and half a day. REVIEW OF SYSTEMS: Significant for decreased sensorium and severe respiratory distress. Otherwise, review of systems is negative. PHYSICAL EXAMINATION: GENERAL: Elderly female, intubated. VITAL SIGNS: Blood pressure is 105/63, temperature is 99.7, pulse is 92, sats are 96%. HEENT: Unremarkable. Pupils are equal and reactive. NECK: Supple, no lymphadenopathy, no thyromegaly. LUNGS: Diminished air entry bilaterally, especially on the right side. CARDIOVASCULAR: S1, S2 heard. No gallop, no murmur, no rub. Apical impulse in left fifth intercostal space and midclavicular line. ABDOMEN: Soft and benign. No hepatosplenomegaly, no guarding, no rigidity. Hernial orifices are normal. EXTREMITIES: Good pedal pulses. Slight pedal edema present. CENTRAL NERVOUS SYSTEM: Decreased responsiveness present. LABORATORY DATA: White count is 9200, H and H of 13.7 and 43.2, platelet count is 191,000. Bicarbonate is 53. ABGs, pH of 7.173, pCO2 of more than 130, pO2 of 67, FiO2 of 70. Lactic acid is 2.3. Urine negative. Drug screen negative. Chest x-ray and CT angiogram shows no central or segmental pulmonary emboli, small right pneumothorax with right thoracostomy tube in place. Multiple bilateral pulmonary nodules with the largest in the left upper lobe measuring 14 mm. Recommend followup chest CT. Bilateral pulmonary edema versus atypical pneumonia. Bilateral dependent opacities most likely represent atelectasis, although pneumonia is not excluded. ASSESSMENT AND PLAN: 1. Acute respiratory failure with hypercarbia. The patient on ventilator. Continue ventilation, increase tidal volume and frequency to expel out carbon dioxide. 2. Right pneumothorax. The patient had a chest tube placed in the Emergency Room. Telegraph Repeater Mechanic consulted. 3. Hypertension. Continue labetalol and lisinopril. 4. Chronic obstructive pulmonary disease exacerbation. Continue DuoNeb, IV Solu-Medrol and IV antibiotics. 5. Hyperlipidemia. Continue Lipitor. 6. Deep venous thrombosis prophylaxis. Lovenox 40 mg subQ daily. Patient is DNR Critical care time 40 minutes JOB# [id number] [facility]
--- NOTE | 2018-10-18 02:34 | XRay Report ---
FINAL REPORT EXAM: XR CHEST 1V AP HISTORY: follow up respiratory failure COMPARISON: Chest CT from October 17, 2017. FINDINGS: Frontal view(s) of the chest obtained. Heart upper limits normal in size. ETT in slightly high in pos ition. Distal tip 7 centimeters from the kelley at the level of clavicular heads. NG tube is present. Distal tip not visualized but extends at least to the proximal stomach. Right thoracostomy catheter is in place. No definite residual pneumothorax by plain film. Stable patc hy airspace opacities bilateral perihilar regions and left lung base. IMPRESSION: ET tube slightly high in position but satisfactory. Distal tip of the NG tube not visualized but exte nds at least to the proximal stomach. No definite residual pneumothorax by plain film. Right thoracostomy catheter remains in place. Stable patchy airspace opacities bilateral perihilar regions and left lung base.
[2018-10-18] MEDS: SOLU-Medrol IV SCH ×3 (02:39→22:06)
--- NOTE | 2018-10-18 08:23 | Progress Note ---
Assessment and Plan Acute on chronic hypercarbic and hypoxic respiratory failure on MVS Right-sided pneumothorax s/p right pleural drain Pulmonary nodules AE-COPD with probable pneumonia Hypertensive urgency h/o Tobacco use disorder, quit 20 years ago Metabolic alkalosis Acute encephaloapthy ( toxic, metabolic) Hypothermia (at presentation) -VAP bundle addressed -High airway pressures and is currently on pressure control mode with a driving pressure of 35, tidal volumes are barely 270 with ongoing compensated respiratory acidosis. She has poor air entry bilaterally, I have initiated scheduled bronchodilators, increased her driving pressures to 40. She has a right pleural drain, with no bullous disease on CT chest. Will monitor for barotrauma -VTE prophylaxis -Stress ulcer prophylaxis -Aspiration precautions Place small bowel feeding tube and initiate enteric feedings -Accucheck with glycemic control. Target blood glucose of 140-180mg/dL -Long acting insulin therapy initiated -Antibiotics for severe COPD and possible aspiration PNA (Azithromycin with Ceftriaxone) -Chest tube management( will leave CT in place) -Wean supplemental oxygen for O2 sats 88-90% -Sedation and analgesia. Titrate to RAAS 0 to -1 -Steroids -Once airway pressures are better, will switch to conventional AC/PRVC -No SBT today, still on hgh ventilatory settings. -Blood pressure management -Acetazolamide IV for 3 doses -CXR and ABG as indicated -Will need outpatient follow up of pulmonary nodules, she is a high risk patient. ( get her care through the [facility]. Her community egg separator is Dr. Abdalla) CONDITION: CRITICAL PROGNOSIS: GUARDED CODE STATUS: DNAR Discussed care plan with the patient's who is at the bedside Discussed care plan during ICU-bedside IDT rounds Goals of care discussions to be had with the family today. The high probability of a clinically significant, sudden or life-threatening deterioration of the [pulmonary] system(s) required my full and direct attention, intervention and personal management. The aggregate critical care time was [65] minutes without overlap. Time includes spent on; [x] Data Review and interpretation [x] Patient assessment and monitoring of vital signs [x] Documentation [x] Medication orders and management Subjective Date of service: 10/18/18 Interval history: Patient is seen today for: Acute on chronic hypercapnic-hypoxic respiratory failure, AE-COPD, CAP; Acute encephalopathy, Hyperglycemia Seen and examined at bedside; 24hour events reviewed; nursing and respiratory care staff consulted; no adverse overnight events reported to me; Orally intubated and on PCV. Apparently DNAR but information was not available at the time. Seen and examined. Vitals, labs, medications, chart and imaging reviewed. Orally intubated. Her is a the bedside. Per RT patient was difficult to ventilate at yesterday Objective Vital Signs - 12hr 10/17/18 10/17/18 10/17/18 20:30 20:45 21:00 Temperature Pulse Rate 91 H 88 89 Respiratory 25 H 22 25 H Rate Blood Pressure 94/60 96/58 97/60 O2 Sat by Pulse 93 98 93 Oximetry 10/17/18 10/17/18 10/17/18 21:15 21:30 21:45 Temperature Pulse Rate 84 98 H 88 Respiratory 23 27 H 25 H Rate Blood Pressure 97/58 105/66 94/59 O2 Sat by Pulse 93 94 93 Oximetry 10/17/18 10/17/18 10/17/18 22:00 22:15 22:30 Temperature Pulse Rate 88 89 92 H Respiratory 25 H 25 H 25 H Rate Blood Pressure 100/58 98/60 98/61 O2 Sat by Pulse 93 93 92 Oximetry 10/17/18 10/17/18 10/17/18 22:45 23:00 23:04 Temperature Pulse Rate 92 H 89 92 H Respiratory 25 H 23 Rate Blood Pressure 102/63 105/63 105/63 O2 Sat by Pulse 96 Oximetry 10/17/18 10/18/18 10/18/18 23:50 00:00 00:22 Temperature 99.7 F H Pulse Rate 103 H 103 H Respiratory 16 Rate Blood Pressure O2 Sat by Pulse 100 Oximetry 10/18/18 10/18/18 10/18/18 01:16 01:20 01:30 Temperature Pulse Rate 88 87 88 Respiratory 25 H 25 H 25 H Rate Blood Pressure 88/48 O2 Sat by Pulse 98 98 98 Oximetry 10/18/18 10/18/18 10/18/18 01:40 01:50 02:00 Temperature Pulse Rate 87 86 85 Respiratory 25 H 25 H 13 Rate Blood Pressure 88/48 87/50 92/51 O2 Sat by Pulse 98 98 100 Oximetry 10/18/18 10/18/18 10/18/18 04:00 06:00 08:00 Temperature 100.0 F H 99.2 F Pulse Rate 85 85 Respiratory 13 13 Rate Blood Pressure O2 Sat by Pulse 100 100 Oximetry 10/18/18 08:15 Temperature Pulse Rate 79 Respiratory 25 H Rate Blood Pressure 110/59 O2 Sat by Pulse 97 Oximetry Constitutional: asleep, other (Obese, orally intubated) Eyes: non-icteric, other (RANDY, EOMI) ENT: oropharynx moist, other (ETT at 23cm at the lip) Neck: supple, no lymphadenopathy, other (large neck) Effort: mildly labored Ascultation: Bilateral: diminished breath sounds, other (Poor air entry) Cardiovascular: regular rate and rhythm, other (S1,S2, no murmurs, gallops or rubs) Gastrointestinal: normoactive bowel sounds, soft, non-tender, non-distended, other (no hepatosplenomegaly) Integumentary: normal Extremities: no cyanosis, no edema, pink and warm, no ischemia or petechiae Neurologic: unable to assess (sedatd on propofol and fentanyl) Psychiatric: other CBC and BMP: 10/17/18 11:31 10/17/18 11:31 ABG, PT/INR, D-dimer: ABG POC ABG pH 7.351 (7.35-7.45) 10/17/18 17:44 POC ABG pCO2 96.2 (35-45) H 10/17/18 17:44 POC ABG pO2 79 (80-105) L 10/17/18 17:44 POC ABG HCO3 53.2 10/17/18 17:44 POC ABG Total CO2 > 50 10/17/18 17:44 POC ABG O2 Sat 93 10/17/18 17:44 PT/INR, D-dimer PT 14.1 Sec. (12.2-14.9) 10/17/18 11:31 INR 1.05 (0.87-1.13) 10/17/18 11:31 D-Dimer 477.43 ng/mlDDU (0-234) H 10/17/18 14:55 Abnormal lab findings: Abnormal Labs 10/17/18 10/17/18 10/17/18 11:31 11:31 11:31 Hct 43.2 H RDW 16.2 H Seg Neuts % (Manual) 93.0 H Lymphocytes % (Manual) 4.0 L Seg Neutrophils # Man 8.6 H Lymphocytes # (Manual) 0.4 L APTT 20.1 L D-Dimer POC ABG pH POC ABG pCO2 POC ABG pO2 Potassium 5.8 H Chloride 86.5 L Carbon Dioxide 53 H* Creatinine 0.4 L Glucose 347 H POC Glucose Lactic Acid Salicylates Acetaminophen 10/17/18 10/17/18 10/17/18 11:31 11:31 13:49 Hct RDW Seg Neuts % (Manual) Lymphocytes % (Manual) Seg Neutrophils # Man Lymphocytes # (Manual) APTT D-Dimer POC ABG pH 7.168 L POC ABG pCO2 > 130.0 H POC ABG pO2 67 L Potassium Chloride Carbon Dioxide Creatinine Glucose POC Glucose Lactic Acid Salicylates < 0.3 L Acetaminophen < 5.0 L 10/17/18 10/17/18 10/17/18 13:59 14:55 14:55 Hct RDW Seg Neuts % (Manual) Lymphocytes % (Manual) Seg Neutrophils # Man Lymphocytes # (Manual) APTT D-Dimer 477.43 H POC ABG pH 7.176 L POC ABG pCO2 > 130.0 H POC ABG pO2 67 L Potassium Chloride Carbon Dioxide Creatinine Glucose POC Glucose Lactic Acid 2.30 H* Salicylates Acetaminophen 10/17/18 10/17/18 10/18/18 15:19 17:44 00:02 Hct RDW Seg Neuts % (Manual) Lymphocytes % (Manual) Seg Neutrophils # Man Lymphocytes # (Manual) APTT D-Dimer POC ABG pH POC ABG pCO2 96.2 H POC ABG pO2 79 L Potassium Chloride Carbon Dioxide Creatinine Glucose POC Glucose 347 H 207 H Lactic Acid Salicylates Acetaminophen Chest x-ray: image reviewed (ETT in position, right pleural drain, left lowe lobe atelectasis) CT scan - chest: image reviewed (right upper and middle lobe infitrates, scattered. Left lung pulmonary nodules, ETT and right pleural drains) Allied health notes reviewed: RT
[2018-10-18] MEDS: NORMODYNE PO SCH ×2 (09:21→22:09)
[2018-10-18] MEDS ORDERED: LEVAQUIN 750MG/150ML 750 MG/150 ML BAG IV SCH (10:00)
[2018-10-18] MEDS ORDERED: NON-FORMULARY (Potassium Chloride [K-Tab Er] 10 MEQ) PO SCH (10:00)
[2018-10-18] MEDS ORDERED: K-DUR PO SCH (10:00)
[2018-10-18] MEDS: PEPCID IV SCH ×2 (10:25→22:08)
[2018-10-18] MEDS: ROCEPHIN/NS 2 GM/100 ML 2 GM/100 ML BAG IV SCH (10:25)
[2018-10-18] MEDS: LANTUS SUB-Q SCH (10:30)
[2018-10-18] MEDS ORDERED: SIMPLE SYRUP FEEDTUBE PRN ×2 (10:37)
[2018-10-18] MEDS ORDERED: SODIUM BICARBONATE FEEDTUBE PRN (10:37)
[2018-10-18] MEDS ORDERED: PANCREAZE DR 10,500 UNIT FEEDTUBE PRN (10:37)
--- NOTE | 2018-10-18 11:12 | Progress Note ---
Assessment and Plan Assessment and plan: 68F who is a [place] patient. She has a history of COPD, chronic respiratory failure, diabetes, hyperlipidemia, uterine cancer and hypertension. She was brought in by the EMS for altered mental status she was somnolent and obtunded upon arrival, [place] Coma Scale was 3 out of 10, she received bag valve mask ventilation and was intubated. She was also hypothermic, chest imaging showed a right-sided pneumothorax, emergent right-sided chest tube was placed. Apparently the patient was DO NOT RESUSCITATE per her family, but the EMS and ER were not aware of her code status Plan Continue ventilator management per pulmonology, Status post right chest tube for pneumothorax Continue blood pressure medications Continue nebs steroids and antibiotics optimize insulins family would like to have her extubated, as being on the vent is against the patient's wishes, Hospice consult placed, they are planning for home hospice -extubate today, dw family and the geospatial scientist, Dr Jang, comfort care orders placed DIAGNOSIS Acute hypercarbic and hypoxic respiratory failure Right-sided tension pneumothorax Hypertensive urgency COPD with exacerbation Uterine cancer DM DO NOT RESUSCITATE status Critical care time 35 minutes History Interval history: no fevers, no seizures, no agitation, patient is intubated and sedated No vomiting Family and the staff, she has been fighting the vent, therefore she was sedated and restrained. Hospitalist Physical - Physical exam Narrative exam: General.: Appears well, no distress, nontoxic HEENT: Moist mucous membranes, extraocular muscles intact, no lymphadenopathy Neck: supple Cardiac: S1-S2 heard Lungs: decreased air entry on bases Abdomen: soft , nontender, nondistended, bowel sounds positive Extremities: no edema clubbing or cyanosis Skin: no rash or lesions Neurologic: intubated and sedated - Constitutional Vitals: Temp Pulse Resp BP Pulse Ox 99.2 F 80 25 H 116/66 97 10/18/18 08:00 10/18/18 09:35 10/18/18 09:35 10/18/18 09:35 10/18/18 09:35 Results - Labs CBC & Chem 7: 10/17/18 11:31 10/17/18 11:31 Labs: Laboratory Last Values WBC 9.2 K/mm3 (4.5-11.0) 10/17/18 11:31 RBC 4.75 M/mm3 (3.65-5.03) 10/17/18 11:31 Hgb 13.7 gm/dl (10.1-14.3) 10/17/18 11:31 Hct 43.2 % (30.3-42.9) H 10/17/18 11:31 MCV 91 fl (79-97) 10/17/18 11:31 MCH 29 pg (28-32) 10/17/18 11:31 MCHC 32 % (30-34) 10/17/18 11:31 RDW 16.2 % (13.2-15.2) H 10/17/18 11:31 Plt Count 191 K/mm3 (140-440) 10/17/18 11:31 Add Manual Diff Complete 10/17/18 11:31 Total Counted 100 10/17/18 11:31 Seg Neutrophils % Hand Umbrella Tipper 10/17/18 11:31 Seg Neuts % (Manual) 93.0 % (40.0-70.0) H 10/17/18 11:31 Band Neutrophils % 0 % 10/17/18 11:31 Lymphocytes % (Manual) 4.0 % (13.4-35.0) L 10/17/18 11:31 Reactive Lymphs % (Man) 0 % 10/17/18 11:31 Monocytes % (Manual) 2.0 % (0.0-7.3) 10/17/18 11:31 Eosinophils % (Manual) 0 % (0.0-4.3) 10/17/18 11:31 Basophils % (Manual) 0 % (0.0-1.8) 10/17/18 11:31 Metamyelocytes % 0 % 10/17/18 11:31 Myelocytes % 1.0 % 10/17/18 11:31 Promyelocytes % 0 % 10/17/18 11:31 Blast Cells % 0 % 10/17/18 11:31 Nucleated RBC % Not Reportable 10/17/18 11:31 Seg Neutrophils # Man 8.6 K/mm3 (1.8-7.7) H 10/17/18 11:31 Band Neutrophils # 0.0 K/mm3 10/17/18 11:31 Lymphocytes # (Manual) 0.4 K/mm3 (1.2-5.4) L 10/17/18 11:31 Abs React Lymphs (Man) 0.0 K/mm3 10/17/18 11:31 Monocytes # (Manual) 0.2 K/mm3 (0.0-0.8) 10/17/18 11:31 Eosinophils # (Manual) 0.0 K/mm3 (0.0-0.4) 10/17/18 11:31 Basophils # (Manual) 0.0 K/mm3 (0.0-0.1) 10/17/18 11:31 Metamyelocytes # 0.0 K/mm3 10/17/18 11:31 Myelocytes # 0.1 K/mm3 10/17/18 11:31 Promyelocytes # 0.0 K/mm3 10/17/18 11:31 Blast Cells # 0.0 K/mm3 10/17/18 11:31 WBC Morphology Not Reportable 10/17/18 11:31 Hypersegmented Neuts Not Reportable 10/17/18 11:31 Hyposegmented Neuts Not Reportable 10/17/18 11:31 Hypogranular Neuts Not Reportable 10/17/18 11:31 Smudge Cells Not Reportable 10/17/18 11:31 Toxic Granulation Not Reportable 10/17/18 11:31 Toxic Vacuolation Not Reportable 10/17/18 11:31 Dohle Bodies Not Reportable 10/17/18 11:31 Pelger-Huet Anomaly Not Reportable 10/17/18 11:31 Harshad Rods Not Reportable 10/17/18 11:31 Platelet Estimate Consistent w auto 10/17/18 11:31 Clumped Platelets Not Reportable 10/17/18 11:31 Plt Clumps, EDTA Not Reportable 10/17/18 11:31 Large Platelets Not Reportable 10/17/18 11:31 Giant Platelets Not Reportable 10/17/18 11:31 Platelet Satelliting Not Reportable 10/17/18 11:31 Plt Morphology Comment Not Reportable 10/17/18 11:31 RBC Morphology Not Reportable 10/17/18 11:31 Dimorphic RBCs Not Reportable 10/17/18 11:31 Polychromasia Not Reportable 10/17/18 11:31 Hypochromasia Not Reportable 10/17/18 11:31 Poikilocytosis Not Reportable 10/17/18 11:31 Anisocytosis 1+ 10/17/18 11:31 Microcytosis Not Reportable 10/17/18 11:31 Macrocytosis Not Reportable 10/17/18 11:31 Spherocytes Not Reportable 10/17/18 11:31 Pappenheimer Bodies Not Reportable 10/17/18 11:31 Sickle Cells Not Reportable 10/17/18 11:31 Target Cells Not Reportable 10/17/18 11:31 Tear Drop Cells Not Reportable 10/17/18 11:31 Ovalocytes Not Reportable 10/17/18 11:31 Helmet Cells Not Reportable 10/17/18 11:31 [place] Bodies Not Reportable 10/17/18 11:31 A[place] Rings Not Reportable 10/17/18 11:31 Aroldo Cells Not Reportable 10/17/18 11:31 Bite Cells Not Reportable 10/17/18 11:31 Crenated Cell Not Reportable 10/17/18 11:31 Elliptocytes Not Reportable 10/17/18 11:31 Acanthocytes (Spur) Not Reportable 10/17/18 11:31 Rouleaux Not Reportable 10/17/18 11:31 Hemoglobin C Crystals Not Reportable 10/17/18 11:31 Schistocytes Not Reportable 10/17/18 11:31 Malaria parasites Not Reportable 10/17/18 11:31 Reji Bodies Not Reportable 10/17/18 11:31 Hem Pathologist Commnt No 10/17/18 11:31 PT 14.1 Sec. (12.2-14.9) 10/17/18 11:31 INR 1.05 (0.87-1.13) 10/17/18 11:31 APTT 20.1 Sec. (24.2-36.6) L 10/17/18 11:31 Thrombin Time 17.0 Sec. (15.1-19.6) 10/17/18 11:31 D-Dimer 477.43 ng/mlDDU (0-234) H 10/17/18 14:55 POC ABG pH 7.383 (7.35-7.45) 10/18/18 09:31 POC ABG pCO2 95.0 (35-45) H 10/18/18 09:31 POC ABG pO2 101 (80-105) 10/18/18 09:31 POC ABG HCO3 56.6 10/18/18 09:31 POC ABG Total CO2 > 50 10/18/18 09:31 POC ABG O2 Sat 97 10/18/18 09:31 POC ABG Base Excess > 30 10/18/18 09:31 FiO2 70 % 10/18/18 09:31 Sodium 143 mmol/L (137-145) 10/17/18 11:31 Potassium 5.8 mmol/L (3.6-5.0) H 10/17/18 11:31 Chloride 86.5 mmol/L (98-107) L 10/17/18 11:31 Carbon Dioxide 53 mmol/L (22-30) H* 10/17/18 11:31 Anion Gap 9 mmol/L 10/17/18 11:31 BUN 14 mg/dL (7-17) 10/17/18 11:31 Creatinine 0.4 mg/dL (0.7-1.2) L 10/17/18 11:31 Estimated GFR > 60 ml/min 10/17/18 11:31 BUN/Creatinine Ratio 35 % 10/17/18 11:31 Glucose 347 mg/dL (65-100) H 10/17/18 11:31 POC Glucose 227 (70-105) H 10/18/18 10:32 Lactic Acid 1.50 mmol/L (0.7-2.0) 10/17/18 20:44 Calcium 9.7 mg/dL (8.4-10.2) 10/17/18 11:31 Total Bilirubin 0.50 mg/dL (0.1-1.2) 10/17/18 11:31 AST 18 units/L (5-40) 10/17/18 11:31 ALT 16 units/L (7-56) 10/17/18 11:31 Alkaline Phosphatase 125 units/L (35-129) 10/17/18 11:31 Troponin T < 0.010 ng/mL (0.00-0.029) 10/17/18 11:31 C-Reactive Protein 1.20 mg/dL (0.00-1.30) 10/17/18 14:55 Total Protein 7.9 g/dL (6.3-8.2) 10/17/18 11:31 Albumin 4.3 g/dL (3.9-5) 10/17/18 11:31 Albumin/Globulin Ratio 1.2 % 10/17/18 11:31 Urine Color Yellow (Yellow) 10/17/18 11:12 Urine Turbidity Clear (Clear) 10/17/18 11:12 Urine pH 6.0 (5.0-7.0) 10/17/18 11:12 Ur Specific Dickey 1.025 (1.003-1.030) 10/17/18 11:12 Urine Protein >2000 mg dl mg/dL (Negative) 10/17/18 11:12 Urine Glucose (UA) >=500 mg/dL (Negative) 10/17/18 11:12 Urine Ketones Tr mg/dL (Negative) 10/17/18 11:12 Urine Blood Neg (Negative) 10/17/18 11:12 Urine Nitrite Neg (Negative) 10/17/18 11:12 Urine Bilirubin Neg (Negative) 10/17/18 11:12 Urine Urobilinogen < 2.0 mg/dL (<2.0) 10/17/18 11:12 Ur Leukocyte Esterase Neg (Negative) 10/17/18 11:12 Urine WBC (Auto) 4.0 /HPF (0.0-6.0) 10/17/18 11:12 Urine RBC (Auto) 2.0 /HPF (0.0-6.0) 10/17/18 11:12 U Epithel Cells (Auto) < 1.0 /HPF (0-13.0) 10/17/18 11:12 Hyaline Casts 1 /LPF 10/17/18 11:12 Urine Mucus Few /HPF 10/17/18 11:12 Salicylates < 0.3 mg/dL (2.8-20.0) L 10/17/18 11:31 Acetaminophen < 5.0 ug/mL (10.0-30.0) L 10/17/18 11:31
[2018-10-18] MEDS ORDERED: D50W (25GM) Syringe IV PRN (11:13)
--- NOTE | 2018-10-18 11:55 | XRay Report ---
AP ABDOMEN: HISTORY: Dobbhoff tube placement. A Dobbhoff tube and nasogastric tube terminates in the antrum of the stomach. The abdominal gas pattern is unremarkable. No masses or organomegaly is identified and there is no gross evidence of free air or fluid. No significant soft tissue calcifications are noted. IMPRESSION: Unremarkable abdomen.
[2018-10-18] MEDS: DUONEB *Not for PRN Use IH SCH ×2 (13:32→19:13)
[2018-10-18] MEDS ORDERED: MORPHINE IV PRN ×2 (14:21)
[2018-10-18] MEDS ORDERED: ISOPTO TEARS 0.5% OU PRN (14:21)
[2018-10-18] MEDS ORDERED: ATIVAN IV PRN ×2 (14:21→22:01)
[2018-10-18] MEDS: ZESTRIL PO SCH ×2 (14:48→22:07)
[2018-10-18] MEDS: DIAMOX IV SCH ×2 (14:49→22:25)
[2018-10-18] MEDS: HEPARIN SUB-Q SCH ×2 (14:49→22:10)
[2018-10-18] MEDS ORDERED: TRANSDERM-SCOP TD SCH (15:00)
[2018-10-18] MEDS ORDERED: HCTZ PO ONE (15:00)
[2018-10-18] MEDS ORDERED: NORMODYNE IV PRN (15:24)
[2018-10-18] MEDS: HCTZ PO SCH ×2 (15:27→22:07)
[2018-10-18] MEDS: HumaLOG SUB-Q SCH ×2 (15:36→18:18)
[2018-10-18] MEDS: ZITHROMAX 500 MG in NACL 0.9% 250ML 250 ML IV SCH (15:40)
[2018-10-18] MEDS ORDERED: ZOFRAN IV PRN (16:00)
[2018-10-18] MEDS: LASIX IV SCH (16:43)
[2018-10-18 16:45] LABS: BUN/Creatinine Ratio 49; Blood Urea Nitrogen 34 mg/dL (7-17); Calcium 9.5 mg/dL (8.4-10.2); Hemolysis Index 5
[2018-10-18] MEDS ORDERED: APRESOLINE IV PRN (22:00)
[2018-10-19] MEDS: HumaLOG SUB-Q SCH ×5 (01:03→22:01)
--- NOTE | 2018-10-19 02:44 | XRay Report ---
FINAL REPORT EXAM: XR CHEST 1V AP HISTORY: follow up respiratory failure TECHNIQUE: A portable upright view the chest was obtained and compared to the study of 10/18/2018. FINDINGS: Since the previous study the patient has been extubated. The NG tube is also been removed. The tip of the right-sided chest tube is barely in the right hemithorax. There is a less than 5 percent right a pical pneumothorax. The lungs reveal interstitial prominence unchanged from the previous study. Pleur al fluid is not seen. There has been interval development of subcutaneous air along the right chest w all. The bones and soft tissues otherwise are unchanged. IMPRESSION: Less than 5 percent right apical pneumothorax. The tip of the right-sided chest tube is barely within the right hemithorax. Interval development of subcutaneous air along the right chest wall since previous study suggesting a n air leak. Interval extubation and removal of the NG tube. Interstitial prominence in both lungs unchanged from the previous study.
[2018-10-19] MEDS: DUONEB *Not for PRN Use IH SCH ×4 (03:04→20:35)
[2018-10-19 05:25] LABS: BUN/Creatinine Ratio 64; Blood Urea Nitrogen 32 mg/dL (7-17); Calcium 9.5 mg/dL (8.4-10.2); Hemolysis Index 81
[2018-10-19] MEDS: SOLU-Medrol IV SCH ×2 (06:03→07:14)
[2018-10-19] MEDS: HEPARIN SUB-Q SCH ×3 (06:04→21:58)
[2018-10-19] MEDS: ROCEPHIN/NS 2 GM/100 ML 2 GM/100 ML BAG IV SCH ×2 (07:13→09:58)
[2018-10-19] MEDS: DIAMOX IV SCH (09:55)
[2018-10-19] MEDS: ZESTRIL PO SCH ×2 (09:55→21:57)
[2018-10-19] MEDS: HCTZ PO SCH ×2 (09:56→21:58)
[2018-10-19] MEDS: NORMODYNE PO SCH ×2 (09:56→21:57)
[2018-10-19] MEDS: PEPCID IV SCH (09:58)
[2018-10-19] MEDS: LANTUS SUB-Q SCH (09:59)
[2018-10-19] MEDS: ZITHROMAX 500 MG in NACL 0.9% 250ML 250 ML IV SCH (10:01)
[2018-10-19] MEDS: LASIX IV SCH (10:04)
--- NOTE | 2018-10-19 10:58 | Progress Note ---
Assessment and Plan Acute on chronic hypercarbic and hypoxic respiratory failure on MVS Right-sided pneumothorax s/p right pleural drain Pulmonary nodules AE-COPD with probable pneumonia Hypertensive urgency h/o Tobacco use disorder, quit 20 years ago Metabolic alkalosis Acute encephaloapthy ( toxic, metabolic) Hypothermia (at presentation) -VAP bundle addressed -High airway pressures and is currently on pressure control mode with a driving pressure of 35, tidal volumes are barely 270 with ongoing compensated respiratory acidosis. She has poor air entry bilaterally, I have initiated scheduled bronchodilators, increased her driving pressures to 40. She has a right pleural drain, with no bullous disease on CT chest. Will monitor for barotrauma -VTE prophylaxis -Stress ulcer prophylaxis -Aspiration precautions Place small bowel feeding tube and initiate enteric feedings -Accucheck with glycemic control. Target blood glucose of 140-180mg/dL -Long acting insulin therapy initiated -Antibiotics for severe COPD and possible aspiration PNA (Azithromycin with Ceftriaxone) -Chest tube management( will leave CT in place) -Wean supplemental oxygen for O2 sats 88-90% -Sedation and analgesia. Titrate to RAAS 0 to -1 -Steroids -Once airway pressures are better, will switch to conventional AC/PRVC -No SBT today, still on hgh ventilatory settings. -Blood pressure management -Acetazolamide IV for 3 doses -CXR and ABG as indicated -Will need outpatient follow up of pulmonary nodules, she is a high risk patient. ( get her care through the [facility]. 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 The high probability of a clinically significant, sudden or life-threatening deterioration of the [pulmonary] system(s) required my full and direct attention, intervention and personal management. The aggregate critical care time was [65] minutes without overlap. Time includes spent on; [x] Data Review and interpretation [x] Patient assessment and monitoring of vital signs [x] Documentation [x] Medication orders and management Subjective Date of service: 10/19/18 Interval history: Patient is seen today for: Acute on chronic hypercapnic-hypoxic respiratory failure, AE-COPD, CAP; Acute encephalopathy, Hyperglycemia Seen and examined at bedside; 24hour events reviewed; nursing and respiratory care staff consulted; no adverse overnight events reported to me; Orally intubated and on PCV. Apparently DNAR but information was not available at the time. Seen and examined. Vitals, labs, medications, chart and imaging reviewed. Orally intubated. Her is a the bedside. Per RT patient was difficult to ventilate at yesterday Objective Vital Signs - 12hr 10/19/18 10/19/18 10/19/18 00:00 00:10 00:20 Temperature 98.8 F Pulse Rate 87 86 Pulse Rate [ Anterior Bilateral Throughout] Respiratory 22 17 15 Rate Respiratory Rate [Anterior Bilateral Throughout] Blood Pressure 125/60 113/49 O2 Sat by Pulse 100 92 94 Oximetry 10/19/18 10/19/18 10/19/18 00:30 00:40 00:50 Temperature Pulse Rate 83 95 H Pulse Rate [ Anterior Bilateral Throughout] Respiratory 18 17 Rate Respiratory Rate [Anterior Bilateral Throughout] Blood Pressure 113/49 113/49 113/49 O2 Sat by Pulse 93 86 87 Oximetry 10/19/18 10/19/18 10/19/18 01:00 01:10 01:20 Temperature Pulse Rate 97 H 95 H Pulse Rate [ Anterior Bilateral Throughout] Respiratory 16 16 Rate Respiratory Rate [Anterior Bilateral Throughout] Blood Pressure 113/49 180/82 180/82 O2 Sat by Pulse 80 L 81 L 82 L Oximetry 10/19/18 10/19/18 10/19/18 01:30 01:40 01:50 Temperature Pulse Rate 94 H 94 H 94 H Pulse Rate [ Anterior Bilateral Throughout] Respiratory 16 16 14 Rate Respiratory Rate [Anterior Bilateral Throughout] Blood Pressure 117/65 117/65 117/65 O2 Sat by Pulse 85 87 92 Oximetry 10/19/18 10/19/18 10/19/18 02:00 02:10 02:20 Temperature Pulse Rate 90 93 H 91 H Pulse Rate [ Anterior Bilateral Throughout] Respiratory 16 16 16 Rate Respiratory Rate [Anterior Bilateral Throughout] Blood Pressure 122/59 122/59 122/59 O2 Sat by Pulse 92 87 92 Oximetry 10/19/18 10/19/18 10/19/18 02:30 02:40 02:50 Temperature Pulse Rate 88 91 H 83 Pulse Rate [ Anterior Bilateral Throughout] Respiratory 15 15 14 Rate Respiratory Rate [Anterior Bilateral Throughout] Blood Pressure 122/59 122/59 122/59 O2 Sat by Pulse 88 92 92 Oximetry 10/19/18 10/19/18 10/19/18 03:00 03:10 03:17 Temperature Pulse Rate 80 100 H Pulse Rate [ 90 Anterior Bilateral Throughout] Respiratory 15 20 Rate Respiratory 20 Rate [Anterior Bilateral Throughout] Blood Pressure 129/69 129/69 O2 Sat by Pulse 93 86 Oximetry 10/19/18 10/19/18 10/19/18 03:20 03:30 03:40 Temperature Pulse Rate 101 H 89 103 H Pulse Rate [ Anterior Bilateral Throughout] Respiratory 20 18 24 Rate Respiratory Rate [Anterior Bilateral Throughout] Blood Pressure 129/69 129/69 129/69 O2 Sat by Pulse 90 90 90 Oximetry 10/19/18 10/19/18 10/19/18 03:50 04:00 04:10 Temperature 98.7 F Pulse Rate 84 91 H 88 Pulse Rate [ Anterior Bilateral Throughout] Respiratory 16 19 18 Rate Respiratory Rate [Anterior Bilateral Throughout] Blood Pressure 129/69 129/69 132/63 O2 Sat by Pulse 93 93 92 Oximetry 10/19/18 10/19/18 10/19/18 04:20 04:30 04:40 Temperature Pulse Rate 90 84 77 Pulse Rate [ Anterior Bilateral Throughout] Respiratory 18 17 18 Rate Respiratory Rate [Anterior Bilateral Throughout] Blood Pressure 132/63 132/63 132/63 O2 Sat by Pulse 94 91 94 Oximetry 10/19/18 10/19/18 10/19/18 04:50 05:00 05:10 Temperature Pulse Rate 80 75 70 Pulse Rate [ Anterior Bilateral Throughout] Respiratory 17 16 15 Rate Respiratory Rate [Anterior Bilateral Throughout] Blood Pressure 132/63 111/56 111/56 O2 Sat by Pulse 97 96 95 Oximetry 10/19/18 10/19/18 10/19/18 05:20 05:30 05:40 Temperature Pulse Rate 70 71 72 Pulse Rate [ Anterior Bilateral Throughout] Respiratory 15 14 15 Rate Respiratory Rate [Anterior Bilateral Throughout] Blood Pressure 111/56 111/56 111/56 O2 Sat by Pulse 96 95 96 Oximetry 10/19/18 10/19/18 10/19/18 05:50 06:00 06:10 Temperature Pulse Rate 91 H 97 H Pulse Rate [ Anterior Bilateral Throughout] Respiratory 14 18 Rate Respiratory Rate [Anterior Bilateral Throughout] Blood Pressure 111/56 111/56 141/69 O2 Sat by Pulse 90 87 90 Oximetry 10/19/18 10/19/18 10/19/18 06:20 06:30 06:40 Temperature Pulse Rate 87 83 82 Pulse Rate [ Anterior Bilateral Throughout] Respiratory 17 16 15 Rate Respiratory Rate [Anterior Bilateral Throughout] Blood Pressure 141/69 141/69 141/69 O2 Sat by Pulse 87 89 91 Oximetry 10/19/18 10/19/18 10/19/18 06:50 07:00 07:10 Temperature Pulse Rate 81 93 H 84 Pulse Rate [ Anterior Bilateral Throughout] Respiratory 16 18 17 Rate Respiratory Rate [Anterior Bilateral Throughout] Blood Pressure 141/69 135/78 141/69 O2 Sat by Pulse 91 93 92 Oximetry 10/19/18 10/19/18 10/19/18 07:20 07:30 07:40 Temperature Pulse Rate 84 81 94 H Pulse Rate [ Anterior Bilateral Throughout] Respiratory 17 17 17 Rate Respiratory Rate [Anterior Bilateral Throughout] Blood Pressure 141/69 141/69 141/69 O2 Sat by Pulse 91 89 92 Oximetry 10/19/18 10/19/18 10/19/18 07:50 08:00 08:10 Temperature 97.6 F Pulse Rate 81 81 101 H Pulse Rate [ Anterior Bilateral Throughout] Respiratory 17 17 17 Rate Respiratory Rate [Anterior Bilateral Throughout] Blood Pressure 141/69 141/69 135/78 O2 Sat by Pulse 87 88 89 Oximetry 10/19/18 10/19/18 10/19/18 08:20 09:15 09:18 Temperature Pulse Rate 96 H Pulse Rate [ 98 H Anterior Bilateral Throughout] Respiratory 23 Rate Respiratory 20 Rate [Anterior Bilateral Throughout] Blood Pressure 135/78 O2 Sat by Pulse 89 93 Oximetry 10/19/18 10/19/18 09:55 09:56 Temperature Pulse Rate 87 86 Pulse Rate [ Anterior Bilateral Throughout] Respiratory Rate Respiratory Rate [Anterior Bilateral Throughout] Blood Pressure 161/79 161/79 O2 Sat by Pulse Oximetry Constitutional: asleep, other (Obese, orally intubated) Eyes: non-icteric, other (RANDY, EOMI) ENT: oropharynx moist, other (ETT at 23cm at the lip) Neck: supple, no lymphadenopathy, other (large neck) Effort: mildly labored Ascultation: Bilateral: diminished breath sounds, other (Poor air entry) Cardiovascular: regular rate and rhythm, other (S1,S2, no murmurs, gallops or rubs) Gastrointestinal: normoactive bowel sounds, soft, non-tender, non-distended, other (no hepatosplenomegaly) Integumentary: normal Extremities: no cyanosis, no edema, pink and warm, no ischemia or petechiae Neurologic: unable to assess (sedatd on propofol and fentanyl) Psychiatric: other CBC and BMP: 10/17/18 11:31 10/19/18 04:06 ABG, PT/INR, D-dimer: ABG POC ABG pH 7.383 (7.35-7.45) 10/18/18 09:31 POC ABG pCO2 95.0 (35-45) H 10/18/18 09:31 POC ABG pO2 101 (80-105) 10/18/18 09:31 POC ABG HCO3 56.6 10/18/18 09:31 POC ABG Total CO2 > 50 10/18/18 09:31 POC ABG O2 Sat 97 10/18/18 09:31 PT/INR, D-dimer PT 14.1 Sec. (12.2-14.9) 10/17/18 11:31 INR 1.05 (0.87-1.13) 10/17/18 11:31 D-Dimer 477.43 ng/mlDDU (0-234) H 10/17/18 14:55 Abnormal lab findings: Abnormal Labs 10/17/18 10/17/18 10/17/18 11:31 11:31 11:31 Hct 43.2 H RDW 16.2 H Seg Neuts % (Manual) 93.0 H Lymphocytes % (Manual) 4.0 L Seg Neutrophils # Man 8.6 H Lymphocytes # (Manual) 0.4 L APTT 20.1 L D-Dimer POC ABG pH POC ABG pCO2 POC ABG pO2 Sodium Potassium 5.8 H Chloride 86.5 L Carbon Dioxide 53 H* BUN Creatinine 0.4 L Glucose 347 H POC Glucose Lactic Acid Salicylates Acetaminophen 10/17/18 10/17/18 10/17/18 11:31 11:31 13:49 Hct RDW Seg Neuts % (Manual) Lymphocytes % (Manual) Seg Neutrophils # Man Lymphocytes # (Manual) APTT D-Dimer POC ABG pH 7.168 L POC ABG pCO2 > 130.0 H POC ABG pO2 67 L Sodium Potassium Chloride Carbon Dioxide BUN Creatinine Glucose POC Glucose Lactic Acid Salicylates < 0.3 L Acetaminophen < 5.0 L 10/17/18 10/17/18 10/17/18 13:59 14:55 14:55 Hct RDW Seg Neuts % (Manual) Lymphocytes % (Manual) Seg Neutrophils # Man Lymphocytes # (Manual) APTT D-Dimer 477.43 H POC ABG pH 7.176 L POC ABG pCO2 > 130.0 H POC ABG pO2 67 L Sodium Potassium Chloride Carbon Dioxide BUN Creatinine Glucose POC Glucose Lactic Acid 2.30 H* Salicylates Acetaminophen 10/17/18 10/17/18 10/18/18 15:19 17:44 00:02 Hct RDW Seg Neuts % (Manual) Lymphocytes % (Manual) Seg Neutrophils # Man Lymphocytes # (Manual) APTT D-Dimer POC ABG pH POC ABG pCO2 96.2 H POC ABG pO2 79 L Sodium Potassium Chloride Carbon Dioxide BUN Creatinine Glucose POC Glucose 347 H 207 H Lactic Acid Salicylates Acetaminophen 10/18/18 10/18/18 10/18/18 09:31 10:32 15:35 Hct RDW Seg Neuts % (Manual) Lymphocytes % (Manual) Seg Neutrophils # Man Lymphocytes # (Manual) APTT D-Dimer POC ABG pH POC ABG pCO2 95.0 H POC ABG pO2 Sodium Potassium Chloride Carbon Dioxide BUN Creatinine Glucose POC Glucose 227 H 210 H Lactic Acid Salicylates Acetaminophen 10/18/18 10/18/18 10/18/18 16:15 18:16 23:40 Hct RDW Seg Neuts % (Manual) Lymphocytes % (Manual) Seg Neutrophils # Man Lymphocytes # (Manual) APTT D-Dimer POC ABG pH POC ABG pCO2 POC ABG pO2 Sodium 149 H Potassium Chloride 94.4 L Carbon Dioxide 46 H* D BUN 34 H Creatinine Glucose 232 H POC Glucose 180 H 229 H Lactic Acid Salicylates Acetaminophen 10/19/18 10/19/18 04:06 05:59 Hct RDW Seg Neuts % (Manual) Lymphocytes % (Manual) Seg Neutrophils # Man Lymphocytes # (Manual) APTT D-Dimer POC ABG pH POC ABG pCO2 POC ABG pO2 Sodium Potassium Chloride 90.9 L Carbon Dioxide 40 H BUN 32 H Creatinine 0.5 L Glucose 227 H POC Glucose 185 H Lactic Acid Salicylates Acetaminophen Allied health notes reviewed: RT
--- NOTE | 2018-10-19 11:07 | Progress Note ---
Assessment and Plan Assessment and plan: 68F who is a [facility] patient. She has a history of COPD, chronic respiratory failure, diabetes, hyperlipidemia, uterine cancer and hypertension. She was brought in by the EMS for altered mental status she was somnolent and obtunded upon arrival, [place] Coma Scale was 3 out of 10, she received bag valve mask ventilation and was intubated. She was also hypothermic, chest imaging showed a right-sided pneumothorax, emergent right-sided chest tube was placed. Apparently the patient was DO NOT RESUSCITATE per her family, but the EMS and ER were not aware of her code status Plan Status post right chest tube for pneumothorax Continue blood pressure medications Continue nebs steroids and antibiotics optimize insulins -Given that the patient was DO NOT RESUSCITATE, with living well and did not want heroic measures are to be on a ventilator. A family meeting was held on , a decision was made to extubate to keep in line with the patient's wishes. She was extubated and put on high flow oxygen on 10/18, she tolerated extubation well and is much improved Discussed with her doctor at [facility], Dr. Ortega, the family would like home hospice, discussed with [facility] hospice -Discussed case with resident care coordinator, planned for chest tube removal tomorrow morning -We'll need high flow oxygen at home prior to discharge DIAGNOSIS Acute hypercarbic and hypoxic respiratory failure Right-sided tension pneumothorax Hypertensive urgency COPD with exacerbation Uterine cancer DM DO NOT RESUSCITATE status Critical care time 35 minutes History Interval history: Review of systems Constitutional: No fevers, no malaise, no joint pains CVS: No chest pain, no orthopnea, no dyspnea on exertion, no pedal edema GI: No abdominal pain, no diarrhea, no vomiting, no constipation Respiratory: Shortness of breath is much improved Hospitalist Physical - Physical exam Narrative exam: General.: Appears well, no distress, nontoxic HEENT: Moist mucous membranes, extraocular muscles intact, no lymphadenopathy Neck: supple Cardiac: S1-S2 heard Lungs: decreased air entry Abdomen: soft , nontender, nondistended, bowel sounds positive Extremities: no edema clubbing or cyanosis Skin: no rash or lesions Neurologic: no gross focal deficits Psych: calm, and cooperative - Constitutional Vitals: Temp Pulse Resp BP Pulse Ox 97.6 F 86 20 161/79 93 10/19/18 08:00 10/19/18 09:56 10/19/18 09:15 10/19/18 09:56 10/19/18 09:18 Results - Labs CBC & Chem 7: 10/17/18 11:31 10/19/18 04:06 Labs: Laboratory Last Values WBC 9.2 K/mm3 (4.5-11.0) 10/17/18 11:31 RBC 4.75 M/mm3 (3.65-5.03) 10/17/18 11:31 Hgb 13.7 gm/dl (10.1-14.3) 10/17/18 11:31 Hct 43.2 % (30.3-42.9) H 10/17/18 11:31 MCV 91 fl (79-97) 10/17/18 11:31 MCH 29 pg (28-32) 10/17/18 11:31 MCHC 32 % (30-34) 10/17/18 11:31 RDW 16.2 % (13.2-15.2) H 10/17/18 11:31 Plt Count 191 K/mm3 (140-440) 10/17/18 11:31 Add Manual Diff Complete 10/17/18 11:31 Total Counted 100 10/17/18 11:31 Seg Neutrophils % Police Records Clerk 10/17/18 11:31 Seg Neuts % (Manual) 93.0 % (40.0-70.0) H 10/17/18 11:31 Band Neutrophils % 0 % 10/17/18 11:31 Lymphocytes % (Manual) 4.0 % (13.4-35.0) L 10/17/18 11:31 Reactive Lymphs % (Man) 0 % 10/17/18 11:31 Monocytes % (Manual) 2.0 % (0.0-7.3) 10/17/18 11:31 Eosinophils % (Manual) 0 % (0.0-4.3) 10/17/18 11:31 Basophils % (Manual) 0 % (0.0-1.8) 10/17/18 11:31 Metamyelocytes % 0 % 10/17/18 11:31 Myelocytes % 1.0 % 10/17/18 11:31 Promyelocytes % 0 % 10/17/18 11:31 Blast Cells % 0 % 10/17/18 11:31 Nucleated RBC % Not Reportable 10/17/18 11:31 Seg Neutrophils # Man 8.6 K/mm3 (1.8-7.7) H 10/17/18 11:31 Band Neutrophils # 0.0 K/mm3 10/17/18 11:31 Lymphocytes # (Manual) 0.4 K/mm3 (1.2-5.4) L 10/17/18 11:31 Abs React Lymphs (Man) 0.0 K/mm3 10/17/18 11:31 Monocytes # (Manual) 0.2 K/mm3 (0.0-0.8) 10/17/18 11:31 Eosinophils # (Manual) 0.0 K/mm3 (0.0-0.4) 10/17/18 11:31 Basophils # (Manual) 0.0 K/mm3 (0.0-0.1) 10/17/18 11:31 Metamyelocytes # 0.0 K/mm3 10/17/18 11:31 Myelocytes # 0.1 K/mm3 10/17/18 11:31 Promyelocytes # 0.0 K/mm3 10/17/18 11:31 Blast Cells # 0.0 K/mm3 10/17/18 11:31 WBC Morphology Not Reportable 10/17/18 11:31 Hypersegmented Neuts Not Reportable 10/17/18 11:31 Hyposegmented Neuts Not Reportable 10/17/18 11:31 Hypogranular Neuts Not Reportable 10/17/18 11:31 Smudge Cells Not Reportable 10/17/18 11:31 Toxic Granulation Not Reportable 10/17/18 11:31 Toxic Vacuolation Not Reportable 10/17/18 11:31 Dohle Bodies Not Reportable 10/17/18 11:31 Pelger-Huet Anomaly Not Reportable 10/17/18 11:31 Harshad Rods Not Reportable 10/17/18 11:31 Platelet Estimate Consistent w auto 10/17/18 11:31 Clumped Platelets Not Reportable 10/17/18 11:31 Plt Clumps, EDTA Not Reportable 10/17/18 11:31 Large Platelets Not Reportable 10/17/18 11:31 Giant Platelets Not Reportable 10/17/18 11:31 Platelet Satelliting Not Reportable 10/17/18 11:31 Plt Morphology Comment Not Reportable 10/17/18 11:31 RBC Morphology Not Reportable 10/17/18 11:31 Dimorphic RBCs Not Reportable 10/17/18 11:31 Polychromasia Not Reportable 10/17/18 11:31 Hypochromasia Not Reportable 10/17/18 11:31 Poikilocytosis Not Reportable 10/17/18 11:31 Anisocytosis 1+ 10/17/18 11:31 Microcytosis Not Reportable 10/17/18 11:31 Macrocytosis Not Reportable 10/17/18 11:31 Spherocytes Not Reportable 10/17/18 11:31 Pappenheimer Bodies Not Reportable 10/17/18 11:31 Sickle Cells Not Reportable 10/17/18 11:31 Target Cells Not Reportable 10/17/18 11:31 Tear Drop Cells Not Reportable 10/17/18 11:31 Ovalocytes Not Reportable 10/17/18 11:31 Helmet Cells Not Reportable 10/17/18 11:31 Urban-Sunrise Bodies Not Reportable 10/17/18 11:31 Vardaman Rings Not Reportable 10/17/18 11:31 [place] Cells Not Reportable 10/17/18 11:31 Bite Cells Not Reportable 10/17/18 11:31 Crenated Cell Not Reportable 10/17/18 11:31 Elliptocytes Not Reportable 10/17/18 11:31 Acanthocytes (Spur) Not Reportable 10/17/18 11:31 Rouleaux Not Reportable 10/17/18 11:31 Hemoglobin C Crystals Not Reportable 10/17/18 11:31 Schistocytes Not Reportable 10/17/18 11:31 Malaria parasites Not Reportable 10/17/18 11:31 Reji Bodies Not Reportable 10/17/18 11:31 Hem Pathologist Commnt No 10/17/18 11:31 PT 14.1 Sec. (12.2-14.9) 10/17/18 11:31 INR 1.05 (0.87-1.13) 10/17/18 11:31 APTT 20.1 Sec. (24.2-36.6) L 10/17/18 11:31 Thrombin Time 17.0 Sec. (15.1-19.6) 10/17/18 11:31 D-Dimer 477.43 ng/mlDDU (0-234) H 10/17/18 14:55 POC ABG pH 7.383 (7.35-7.45) 10/18/18 09:31 POC ABG pCO2 95.0 (35-45) H 10/18/18 09:31 POC ABG pO2 101 (80-105) 10/18/18 09:31 POC ABG HCO3 56.6 10/18/18 09:31 POC ABG Total CO2 > 50 10/18/18 09:31 POC ABG O2 Sat 97 10/18/18 09:31 POC ABG Base Excess > 30 10/18/18 09:31 FiO2 70 % 10/18/18 09:31 Sodium 141 mmol/L (137-145) D 10/19/18 04:06 Potassium 4.2 mmol/L (3.6-5.0) 10/19/18 04:06 Chloride 90.9 mmol/L (98-107) L 10/19/18 04:06 Carbon Dioxide 40 mmol/L (22-30) H 10/19/18 04:06 Anion Gap 14 mmol/L 10/19/18 04:06 BUN 32 mg/dL (7-17) H 10/19/18 04:06 Creatinine 0.5 mg/dL (0.7-1.2) L 10/19/18 04:06 Estimated GFR > 60 ml/min 10/19/18 04:06 BUN/Creatinine Ratio 64 % 10/19/18 04:06 Glucose 227 mg/dL (65-100) H 10/19/18 04:06 POC Glucose 185 (70-105) H 10/19/18 05:59 Lactic Acid 1.50 mmol/L (0.7-2.0) 10/17/18 20:44 Calcium 9.5 mg/dL (8.4-10.2) 10/19/18 04:06 Total Bilirubin 0.50 mg/dL (0.1-1.2) 10/17/18 11:31 AST 18 units/L (5-40) 10/17/18 11:31 ALT 16 units/L (7-56) 10/17/18 11:31 Alkaline Phosphatase 125 units/L (35-129) 10/17/18 11:31 Troponin T < 0.010 ng/mL (0.00-0.029) 10/17/18 11:31 C-Reactive Protein 1.20 mg/dL (0.00-1.30) 10/17/18 14:55 Total Protein 7.9 g/dL (6.3-8.2) 10/17/18 11:31 Albumin 4.3 g/dL (3.9-5) 10/17/18 11:31 Albumin/Globulin Ratio 1.2 % 10/17/18 11:31 Urine Color Yellow (Yellow) 10/17/18 11:12 Urine Turbidity Clear (Clear) 10/17/18 11:12 Urine pH 6.0 (5.0-7.0) 10/17/18 11:12 Ur Specific [place] 1.025 (1.003-1.030) 10/17/18 11:12 Urine Protein >2000 mg dl mg/dL (Negative) 10/17/18 11:12 Urine Glucose (UA) >=500 mg/dL (Negative) 10/17/18 11:12 Urine Ketones Tr mg/dL (Negative) 10/17/18 11:12 Urine Blood Neg (Negative) 10/17/18 11:12 Urine Nitrite Neg (Negative) 10/17/18 11:12 Urine Bilirubin Neg (Negative) 10/17/18 11:12 Urine Urobilinogen < 2.0 mg/dL (<2.0) 10/17/18 11:12 Ur Leukocyte Esterase Neg (Negative) 10/17/18 11:12 Urine WBC (Auto) 4.0 /HPF (0.0-6.0) 10/17/18 11:12 Urine RBC (Auto) 2.0 /HPF (0.0-6.0) 10/17/18 11:12 U Epithel Cells (Auto) < 1.0 /HPF (0-13.0) 10/17/18 11:12 Hyaline Casts 1 /LPF 10/17/18 11:12 Urine Mucus Few /HPF 10/17/18 11:12 Salicylates < 0.3 mg/dL (2.8-20.0) L 10/17/18 11:31 Acetaminophen < 5.0 ug/mL (10.0-30.0) L 10/17/18 11:31 Nutrition/Malnutrition Assess - Dietary Evaluation Nutrition/Malnutrition Findings: Nutrition Notes Start: 10/18/18 10:12 Freq: Status: Active Protocol: Document 10/18/18 10:12 TW (Rec: 10/18/18 12:22 TW [id number]) Co-Sign 10/18/18 10:12 LP Nutrition Notes Need for Assessment generated from: MD Order Initial or Follow up Assessment Current Diagnosis COPD Diabetes Hypertension Respiratory Failure Other Pertinent Diagnosis uterine CA Current Diet NPO Labs/Tests BG 207 Pertinent Medications Solu-medrol, propofol Height 5 ft 7 in Weight 118.8 kg [place] Body Weight (kg) 61.36 BMI 41.0 Weight Status Morbidly Obese Subjective/Other Information MD consult for TF. Observed Dobhoff being placed. Percent of energy/protein needs met: 0%/0% Burn Absent Trauma Absent Current % PO Negligible #1 Nutrition Diagnosis Inadequate oral intake Etiology vent status As Evidenced by Signs and Symptoms NPO, severe respiratory distress Is patient on ventilator? Yes Is Patient Ambulatory and/or Out of Bed No REE-([facility]-confined to bed) 2105.856 Kcal/Kg value to use for calculation 13 Approximate Energy Requirements Using 1544 kcal/Kg Calculation Used for Recommendations Kcal/kg Additional Notes pro: 122-153g/day (2-2.5g/kg IBW) fluid: 1 mL/kcal or per MD Nutrition Intervention Change Diet Order: TF- Vital HP Nutrition Support: Vital High Protein at 65mL/hr Water flushes of 50mL q4h Kcal 1,560 Protein (gm) 137 Fluid (mL) 1,304 Goal #1 TF start Goal #2 TF tolerance Anticipated Discharge Needs: Unable to determine Follow-Up By: 10/20/18 Additional Comments F/U TF tolerance
--- NOTE | 2018-10-19 11:39 | XRay Report ---
AP CHEST: HISTORY: Endotracheal tube placement This examination is just presented to me for interpretation. The endotracheal tube terminates 5.7 cm superior to the kelley. A nasogastric tube is followed to the proximal stomach where its distal tip is cut off the [id number]. Mild cardiomegaly and mild central pulmonary venous congestion are suspected. The lungs are generally clear otherwise. No evidence for pleural effusion or pneumothorax. IMPRESSION: Adequate placement of lines and tubes. Mild cardiomegaly and pulmonary venous congestion.
[2018-10-19] MEDS ORDERED: MORPHINE IV PRN (15:09)
[2018-10-19] MEDS ORDERED: PERCOCET 5/325 PO PRN (15:09)
[2018-10-20] MEDS: DUONEB *Not for PRN Use IH SCH ×4 (01:30→20:48)
[2018-10-20] MEDS: HEPARIN SUB-Q SCH ×3 (05:24→22:57)
[2018-10-20 06:38] LABS: BUN/Creatinine Ratio 52; Blood Urea Nitrogen 31 mg/dL (7-17); Calcium 9.7 mg/dL (8.4-10.2); Hemolysis Index 5
--- NOTE | 2018-10-20 08:20 | XRay Report ---
AP CHEST: HISTORY: Followup respiratory failure Mild decrease in pulmonary venous congestion is demonstrated since yesterday's exam. Heart size is stable and borderline. No evidence for consolidation, pleural effusion or pneumothorax. The right chest tube has essentially been retracted out of the right pleural space. IMPRESSION: Mild improvement in pulmonary venous congestion. No residual pneumothorax is demonstrated on portable chest x-ray. The right chest tube is essentially in the right axillary soft tissues.
[2018-10-20] MEDS: ZESTRIL PO SCH ×2 (10:25→22:57)
[2018-10-20] MEDS: HCTZ PO SCH ×2 (10:27→22:57)
[2018-10-20] MEDS: DELTASONE PO SCH (10:28)
[2018-10-20] MEDS: NORMODYNE PO SCH ×2 (10:29→22:57)
[2018-10-20] MEDS: HumaLOG SUB-Q SCH ×5 (14:26→22:58)
--- NOTE | 2018-10-20 14:27 | Progress Note ---
Assessment and Plan Acute on chronic hypoxemic respiratory failure Acute chronic obstructive pulmonary disease exacerbation Right pneumothorax, spontaneous s/p right pleural drain Morbid obesity Hyperkalemia Elevated serum glucose Pulmonary nodules Hypertensive urgency h/o Tobacco use disorder, quit 20 years ago Metabolic alkalosis Acute encephaloapthy ( toxic, metabolic) Hypothermia (at presentation) - clamp chest tube - repeat CXR in am and pull CT if no recurrent pneumothorax - continue accuchecks with glycemic control per SSI for target blood glucose of 140-180mg/dL - continue VTE & Stress ulcer prophylaxis - Long acting insulin therapy initiated - complete antibiotics for severe COPD and possible pneumonia - Chest tube management ongoing - continue to wean supplemental oxygen for O2 sats 88-90% - continue systemic steroids with slow taper - continue antihypertensives and other chronic diseasee med's per attending - prn CXR and ABG at this point - She will need outpatient follow up of pulmonary nodules, she is a high risk patient (She get's her care through the [facility]. Her community grease packer is Dr. Abdalla) ..... re-evaluate in am & prn Subjective Date of service: 10/20/18 Principal diagnosis: Ac on ch hypoxemic respiratory failure; AE-COPD; R. pneumothorax s/p CT Interval history: Patient is seen today for: Acute on chronic hypoxemic respiratory failure; Acute chronic obstructive pulmonary disease exacerbation; Right pneumothorax, spontaneous s/p right pleural drain; Morbid obesity Seen and examined at bedside; 24hour events reviewed; nursing and respiratory care staff consulted; no adverse overnight events reported to me; resting peacefully in bed; denies acute chest pains or palpitations; No N/V/F/C; remains on supplemental oxygen; chest tube in place Objective Vital Signs - 12hr 10/20/18 10/20/18 10/20/18 04:47 08:00 08:17 Temperature 98.4 F Pulse Rate 79 70 Pulse Rate [ 83 Anterior Bilateral Throughout] Respiratory 18 20 Rate Respiratory 18 Rate [Anterior Bilateral Throughout] Blood Pressure 148/66 147/70 O2 Sat by Pulse 95 95 Oximetry 10/20/18 10/20/18 10/20/18 08:18 09:03 10:25 Temperature 97.6 F Pulse Rate 68 Pulse Rate [ Anterior Bilateral Throughout] Respiratory Rate Respiratory Rate [Anterior Bilateral Throughout] Blood Pressure O2 Sat by Pulse 92 Oximetry 10/20/18 10/20/18 10/20/18 10:29 11:36 11:37 Temperature 97.8 F Pulse Rate 86 62 Pulse Rate [ Anterior Bilateral Throughout] Respiratory 20 Rate Respiratory Rate [Anterior Bilateral Throughout] Blood Pressure 108/55 O2 Sat by Pulse 92 Oximetry 10/20/18 10/20/18 13:31 13:32 Temperature Pulse Rate Pulse Rate [ 82 82 Anterior Bilateral Throughout] Respiratory Rate Respiratory 19 17 Rate [Anterior Bilateral Throughout] Blood Pressure O2 Sat by Pulse Oximetry Constitutional: no acute distress, alert, other (Obese, elderly CF normocephalic and atraumatic wit mildly increased respiratory effort at rest) Eyes: non-icteric, other (RANDY, EOMI) ENT: oropharynx moist, other (extubated) Neck: supple, no lymphadenopathy, other (large neck) Effort: mildly labored Ascultation: Bilateral: diminished breath sounds, rhonchi (bases) Percussion: Bilateral: not dull Cardiovascular: regular rate and rhythm, other (S1,S2, no murmurs, gallops or rubs) Gastrointestinal: normoactive bowel sounds, soft, non-tender, non-distended, other (no hepatosplenomegaly) Integumentary: normal Extremities: no cyanosis, no edema, pink and warm, pulses normal, no ischemia or petechiae Neurologic: unable to assess (sedatd on propofol and fentanyl) Psychiatric: other CBC and BMP: 10/17/18 11:31 10/20/18 05:28 ABG, PT/INR, D-dimer: ABG POC ABG pH 7.383 (7.35-7.45) 10/18/18 09:31 POC ABG pCO2 95.0 (35-45) H 10/18/18 09:31 POC ABG pO2 101 (80-105) 10/18/18 09:31 POC ABG HCO3 56.6 10/18/18 09:31 POC ABG Total CO2 > 50 10/18/18 09:31 POC ABG O2 Sat 97 10/18/18 09:31 PT/INR, D-dimer PT 14.1 Sec. (12.2-14.9) 10/17/18 11:31 INR 1.05 (0.87-1.13) 10/17/18 11:31 D-Dimer 477.43 ng/mlDDU (0-234) H 10/17/18 14:55 Abnormal lab findings: Abnormal Labs 10/17/18 10/17/18 10/17/18 11:31 11:31 11:31 Hct 43.2 H RDW 16.2 H Seg Neuts % (Manual) 93.0 H Lymphocytes % (Manual) 4.0 L Seg Neutrophils # Man 8.6 H Lymphocytes # (Manual) 0.4 L APTT 20.1 L D-Dimer POC ABG pH POC ABG pCO2 POC ABG pO2 Sodium Potassium 5.8 H Chloride 86.5 L Carbon Dioxide 53 H* BUN Creatinine 0.4 L Glucose 347 H POC Glucose Lactic Acid Salicylates Acetaminophen 10/17/18 10/17/18 10/17/18 11:31 11:31 13:49 Hct RDW Seg Neuts % (Manual) Lymphocytes % (Manual) Seg Neutrophils # Man Lymphocytes # (Manual) APTT D-Dimer POC ABG pH 7.168 L POC ABG pCO2 > 130.0 H POC ABG pO2 67 L Sodium Potassium Chloride Carbon Dioxide BUN Creatinine Glucose POC Glucose Lactic Acid Salicylates < 0.3 L Acetaminophen < 5.0 L 10/17/18 10/17/18 10/17/18 13:59 14:55 14:55 Hct RDW Seg Neuts % (Manual) Lymphocytes % (Manual) Seg Neutrophils # Man Lymphocytes # (Manual) APTT D-Dimer 477.43 H POC ABG pH 7.176 L POC ABG pCO2 > 130.0 H POC ABG pO2 67 L Sodium Potassium Chloride Carbon Dioxide BUN Creatinine Glucose POC Glucose Lactic Acid 2.30 H* Salicylates Acetaminophen 10/17/18 10/17/18 10/18/18 15:19 17:44 00:02 Hct RDW Seg Neuts % (Manual) Lymphocytes % (Manual) Seg Neutrophils # Man Lymphocytes # (Manual) APTT D-Dimer POC ABG pH POC ABG pCO2 96.2 H POC ABG pO2 79 L Sodium Potassium Chloride Carbon Dioxide BUN Creatinine Glucose POC Glucose 347 H 207 H Lactic Acid Salicylates Acetaminophen 10/18/18 10/18/18 10/18/18 09:31 10:32 15:35 Hct RDW Seg Neuts % (Manual) Lymphocytes % (Manual) Seg Neutrophils # Man Lymphocytes # (Manual) APTT D-Dimer POC ABG pH POC ABG pCO2 95.0 H POC ABG pO2 Sodium Potassium Chloride Carbon Dioxide BUN Creatinine Glucose POC Glucose 227 H 210 H Lactic Acid Salicylates Acetaminophen 10/18/18 10/18/18 10/18/18 16:15 18:16 23:40 Hct RDW Seg Neuts % (Manual) Lymphocytes % (Manual) Seg Neutrophils # Man Lymphocytes # (Manual) APTT D-Dimer POC ABG pH POC ABG pCO2 POC ABG pO2 Sodium 149 H Potassium Chloride 94.4 L Carbon Dioxide 46 H* D BUN 34 H Creatinine Glucose 232 H POC Glucose 180 H 229 H Lactic Acid Salicylates Acetaminophen 10/19/18 10/19/18 10/19/18 04:06 05:59 12:50 Hct RDW Seg Neuts % (Manual) Lymphocytes % (Manual) Seg Neutrophils # Man Lymphocytes # (Manual) APTT D-Dimer POC ABG pH POC ABG pCO2 POC ABG pO2 Sodium Potassium Chloride 90.9 L Carbon Dioxide 40 H BUN 32 H Creatinine 0.5 L Glucose 227 H POC Glucose 185 H 250 H Lactic Acid Salicylates Acetaminophen 10/19/18 10/19/18 10/20/18 17:09 20:41 05:28 Hct RDW Seg Neuts % (Manual) Lymphocytes % (Manual) Seg Neutrophils # Man Lymphocytes # (Manual) APTT D-Dimer POC ABG pH POC ABG pCO2 POC ABG pO2 Sodium Potassium Chloride 91.3 L Carbon Dioxide 44 H* BUN 31 H Creatinine 0.6 L Glucose 163 H POC Glucose 217 H 166 H Lactic Acid Salicylates Acetaminophen 10/20/18 10/20/18 06:03 11:43 Hct RDW Seg Neuts % (Manual) Lymphocytes % (Manual) Seg Neutrophils # Man Lymphocytes # (Manual) APTT D-Dimer POC ABG pH POC ABG pCO2 POC ABG pO2 Sodium Potassium Chloride Carbon Dioxide BUN Creatinine Glucose POC Glucose 177 H 212 H Lactic Acid Salicylates Acetaminophen Chest x-ray: image reviewed (chest tube almost out of pleural space) Allied health notes reviewed: nursing
--- NOTE | 2018-10-20 14:30 | Progress Note ---
Assessment and Plan Assessment and plan: 68F who is a [facility] patient. She has a history of COPD, chronic respiratory failure, diabetes, hyperlipidemia, uterine cancer and hypertension. She was brought in by the EMS for altered mental status she was somnolent and obtunded upon arrival, [place] Coma Scale was 3 out of 10, she received bag valve mask ventilation and was intubated. She was also hypothermic, chest imaging showed a right-sided pneumothorax, emergent right-sided chest tube was placed. Apparently the patient was DO NOT RESUSCITATE per her family, but the EMS and ER were not aware of her code status Plan Status post right chest tube for pneumothorax Continue blood pressure medications Continue nebs steroids and antibiotics optimize insulins -Given that the patient was DO NOT RESUSCITATE, with living well and did not want heroic measures are to be on a ventilator. A family meeting was held on , a decision was made to extubate to keep in line with the patient's wishes. She was extubated and put on high flow oxygen on 10/18, she tolerated extubation well and is much improved Discussed with her doctor at [place], Dr. Shea, the family would like home hospice, discussed with [facility] hospice -Discussed case with riveter hand, planned for chest tube removal today -Oxygen has been weaned down to 6 L. -Plan for discharge home with home hospice tomorrow DIAGNOSIS Acute hypercarbic and hypoxic respiratory failure Right-sided tension pneumothorax Hypertensive urgency COPD with exacerbation Uterine cancer DM DO NOT RESUSCITATE status History Interval history: Review of systems Constitutional: No fevers, no malaise, no joint pains CVS: No chest pain, no orthopnea, no dyspnea on exertion, no pedal edema GI: No abdominal pain, no diarrhea, no vomiting, no constipation Respiratory: Shortness of breath is much improved Hospitalist Physical - Physical exam Narrative exam: General.: Appears well, no distress, nontoxic HEENT: Moist mucous membranes, extraocular muscles intact, no lymphadenopathy Neck: supple Cardiac: S1-S2 heard Lungs: decreased air entry Abdomen: soft , nontender, nondistended, bowel sounds positive Extremities: no edema clubbing or cyanosis Skin: no rash or lesions Neurologic: no gross focal deficits Psych: calm, and cooperative - Constitutional Vitals: Temp Pulse Resp BP Pulse Ox 97.8 F 82 17 108/55 92 10/20/18 11:36 10/20/18 13:32 10/20/18 13:32 10/20/18 11:37 10/20/18 11:37 Results - Labs CBC & Chem 7: 10/17/18 11:31 10/20/18 05:28 Labs: Laboratory Last Values WBC 9.2 K/mm3 (4.5-11.0) 10/17/18 11:31 RBC 4.75 M/mm3 (3.65-5.03) 10/17/18 11:31 Hgb 13.7 gm/dl (10.1-14.3) 10/17/18 11:31 Hct 43.2 % (30.3-42.9) H 10/17/18 11:31 MCV 91 fl (79-97) 10/17/18 11:31 MCH 29 pg (28-32) 10/17/18 11:31 MCHC 32 % (30-34) 10/17/18 11:31 RDW 16.2 % (13.2-15.2) H 10/17/18 11:31 Plt Count 191 K/mm3 (140-440) 10/17/18 11:31 Add Manual Diff Complete 10/17/18 11:31 Total Counted 100 10/17/18 11:31 Seg Neutrophils % Planting Machine Crewman 10/17/18 11:31 Seg Neuts % (Manual) 93.0 % (40.0-70.0) H 10/17/18 11:31 Band Neutrophils % 0 % 10/17/18 11:31 Lymphocytes % (Manual) 4.0 % (13.4-35.0) L 10/17/18 11:31 Reactive Lymphs % (Man) 0 % 10/17/18 11:31 Monocytes % (Manual) 2.0 % (0.0-7.3) 10/17/18 11:31 Eosinophils % (Manual) 0 % (0.0-4.3) 10/17/18 11:31 Basophils % (Manual) 0 % (0.0-1.8) 10/17/18 11:31 Metamyelocytes % 0 % 10/17/18 11:31 Myelocytes % 1.0 % 10/17/18 11:31 Promyelocytes % 0 % 10/17/18 11:31 Blast Cells % 0 % 10/17/18 11:31 Nucleated RBC % Not Reportable 10/17/18 11:31 Seg Neutrophils # Man 8.6 K/mm3 (1.8-7.7) H 10/17/18 11:31 Band Neutrophils # 0.0 K/mm3 10/17/18 11:31 Lymphocytes # (Manual) 0.4 K/mm3 (1.2-5.4) L 10/17/18 11:31 Abs React Lymphs (Man) 0.0 K/mm3 10/17/18 11:31 Monocytes # (Manual) 0.2 K/mm3 (0.0-0.8) 10/17/18 11:31 Eosinophils # (Manual) 0.0 K/mm3 (0.0-0.4) 10/17/18 11:31 Basophils # (Manual) 0.0 K/mm3 (0.0-0.1) 10/17/18 11:31 Metamyelocytes # 0.0 K/mm3 10/17/18 11:31 Myelocytes # 0.1 K/mm3 10/17/18 11:31 Promyelocytes # 0.0 K/mm3 10/17/18 11:31 Blast Cells # 0.0 K/mm3 10/17/18 11:31 WBC Morphology Not Reportable 10/17/18 11:31 Hypersegmented Neuts Not Reportable 10/17/18 11:31 Hyposegmented Neuts Not Reportable 10/17/18 11:31 Hypogranular Neuts Not Reportable 10/17/18 11:31 Smudge Cells Not Reportable 10/17/18 11:31 Toxic Granulation Not Reportable 10/17/18 11:31 Toxic Vacuolation Not Reportable 10/17/18 11:31 Dohle Bodies Not Reportable 10/17/18 11:31 Pelger-Huet Anomaly Not Reportable 10/17/18 11:31 Harshad Rods Not Reportable 10/17/18 11:31 Platelet Estimate Consistent w auto 10/17/18 11:31 Clumped Platelets Not Reportable 10/17/18 11:31 Plt Clumps, EDTA Not Reportable 10/17/18 11:31 Large Platelets Not Reportable 10/17/18 11:31 Giant Platelets Not Reportable 10/17/18 11:31 Platelet Satelliting Not Reportable 10/17/18 11:31 Plt Morphology Comment Not Reportable 10/17/18 11:31 RBC Morphology Not Reportable 10/17/18 11:31 Dimorphic RBCs Not Reportable 10/17/18 11:31 Polychromasia Not Reportable 10/17/18 11:31 Hypochromasia Not Reportable 10/17/18 11:31 Poikilocytosis Not Reportable 10/17/18 11:31 Anisocytosis 1+ 10/17/18 11:31 Microcytosis Not Reportable 10/17/18 11:31 Macrocytosis Not Reportable 10/17/18 11:31 Spherocytes Not Reportable 10/17/18 11:31 Pappenheimer Bodies Not Reportable 10/17/18 11:31 Sickle Cells Not Reportable 10/17/18 11:31 Target Cells Not Reportable 10/17/18 11:31 Tear Drop Cells Not Reportable 10/17/18 11:31 Ovalocytes Not Reportable 10/17/18 11:31 Helmet Cells Not Reportable 10/17/18 11:31 [place] Bodies Not Reportable 10/17/18 11:31 [place] Rings Not Reportable 10/17/18 11:31 [place] Cells Not Reportable 10/17/18 11:31 Bite Cells Not Reportable 10/17/18 11:31 Crenated Cell Not Reportable 10/17/18 11:31 Elliptocytes Not Reportable 10/17/18 11:31 Acanthocytes (Spur) Not Reportable 10/17/18 11:31 Rouleaux Not Reportable 10/17/18 11:31 Hemoglobin C Crystals Not Reportable 10/17/18 11:31 Schistocytes Not Reportable 10/17/18 11:31 Malaria parasites Not Reportable 10/17/18 11:31 Reji Bodies Not Reportable 10/17/18 11:31 Hem Pathologist Commnt No 10/17/18 11:31 PT 14.1 Sec. (12.2-14.9) 10/17/18 11:31 INR 1.05 (0.87-1.13) 10/17/18 11:31 APTT 20.1 Sec. (24.2-36.6) L 10/17/18 11:31 Thrombin Time 17.0 Sec. (15.1-19.6) 10/17/18 11:31 D-Dimer 477.43 ng/mlDDU (0-234) H 10/17/18 14:55 POC ABG pH 7.383 (7.35-7.45) 10/18/18 09:31 POC ABG pCO2 95.0 (35-45) H 10/18/18 09:31 POC ABG pO2 101 (80-105) 10/18/18 09:31 POC ABG HCO3 56.6 10/18/18 09:31 POC ABG Total CO2 > 50 10/18/18 09:31 POC ABG O2 Sat 97 10/18/18 09:31 POC ABG Base Excess > 30 10/18/18 09:31 FiO2 70 % 10/18/18 09:31 Sodium 143 mmol/L (137-145) 10/20/18 05:28 Potassium 4.4 mmol/L (3.6-5.0) 10/20/18 05:28 Chloride 91.3 mmol/L (98-107) L 10/20/18 05:28 Carbon Dioxide 44 mmol/L (22-30) H* 10/20/18 05:28 Anion Gap 12 mmol/L 10/20/18 05:28 BUN 31 mg/dL (7-17) H 10/20/18 05:28 Creatinine 0.6 mg/dL (0.7-1.2) L 10/20/18 05:28 Estimated GFR > 60 ml/min 10/20/18 05:28 BUN/Creatinine Ratio 52 % 10/20/18 05:28 Glucose 163 mg/dL (65-100) H 10/20/18 05:28 POC Glucose 212 (70-105) H 10/20/18 11:43 Lactic Acid 1.50 mmol/L (0.7-2.0) 10/17/18 20:44 Calcium 9.7 mg/dL (8.4-10.2) 10/20/18 05:28 Total Bilirubin 0.50 mg/dL (0.1-1.2) 10/17/18 11:31 AST 18 units/L (5-40) 10/17/18 11:31 ALT 16 units/L (7-56) 10/17/18 11:31 Alkaline Phosphatase 125 units/L (35-129) 10/17/18 11:31 Troponin T < 0.010 ng/mL (0.00-0.029) 10/17/18 11:31 C-Reactive Protein 1.20 mg/dL (0.00-1.30) 10/17/18 14:55 Total Protein 7.9 g/dL (6.3-8.2) 10/17/18 11:31 Albumin 4.3 g/dL (3.9-5) 10/17/18 11:31 Albumin/Globulin Ratio 1.2 % 10/17/18 11:31 Urine Color Yellow (Yellow) 10/17/18 11:12 Urine Turbidity Clear (Clear) 10/17/18 11:12 Urine pH 6.0 (5.0-7.0) 10/17/18 11:12 Ur Specific [place] 1.025 (1.003-1.030) 10/17/18 11:12 Urine Protein >2000 mg dl mg/dL (Negative) 10/17/18 11:12 Urine Glucose (UA) >=500 mg/dL (Negative) 10/17/18 11:12 Urine Ketones Tr mg/dL (Negative) 10/17/18 11:12 Urine Blood Neg (Negative) 10/17/18 11:12 Urine Nitrite Neg (Negative) 10/17/18 11:12 Urine Bilirubin Neg (Negative) 10/17/18 11:12 Urine Urobilinogen < 2.0 mg/dL (<2.0) 10/17/18 11:12 Ur Leukocyte Esterase Neg (Negative) 10/17/18 11:12 Urine WBC (Auto) 4.0 /HPF (0.0-6.0) 10/17/18 11:12 Urine RBC (Auto) 2.0 /HPF (0.0-6.0) 10/17/18 11:12 U Epithel Cells (Auto) < 1.0 /HPF (0-13.0) 10/17/18 11:12 Hyaline Casts 1 /LPF 10/17/18 11:12 Urine Mucus Few /HPF 10/17/18 11:12 Salicylates < 0.3 mg/dL (2.8-20.0) L 10/17/18 11:31 Acetaminophen < 5.0 ug/mL (10.0-30.0) L 10/17/18 11:31 Nutrition/Malnutrition Assess - Dietary Evaluation Nutrition/Malnutrition Findings: Nutrition Notes Start: 10/18/18 10:12 Freq: Status: Active Protocol: Document 10/18/18 10:12 TW (Rec: 10/18/18 12:22 TW [id number]) Co-Sign 10/18/18 10:12 LP Nutrition Notes Need for Assessment generated from: MD Order Initial or Follow up Assessment Current Diagnosis COPD Diabetes Hypertension Respiratory Failure Other Pertinent Diagnosis uterine CA Current Diet NPO Labs/Tests BG 207 Pertinent Medications Solu-medrol, propofol Height 5 ft 7 in Weight 118.8 kg [place] Body Weight (kg) 61.36 BMI 41.0 Weight Status Morbidly Obese Subjective/Other Information MD consult for TF. Observed Dobhoff being placed. Percent of energy/protein needs met: 0%/0% Burn Absent Trauma Absent Current % PO Negligible #1 Nutrition Diagnosis Inadequate oral intake Etiology vent status As Evidenced by Signs and Symptoms NPO, severe respiratory distress Is patient on ventilator? Yes Is Patient Ambulatory and/or Out of Bed No REE-([facility]-confined to bed) 2105.856 Kcal/Kg value to use for calculation 13 Approximate Energy Requirements Using 1544 kcal/Kg Calculation Used for Recommendations Kcal/kg Additional Notes pro: 122-153g/day (2-2.5g/kg IBW) fluid: 1 mL/kcal or per MD Nutrition Intervention Change Diet Order: TF- Vital HP Nutrition Support: Vital High Protein at 65mL/hr Water flushes of 50mL q4h Kcal 1,560 Protein (gm) 137 Fluid (mL) 1,304 Goal #1 TF start Goal #2 TF tolerance Anticipated Discharge Needs: Unable to determine Follow-Up By: 10/20/18 Additional Comments F/U TF tolerance
[2018-10-20] MEDS: LANTUS SUB-Q SCH (14:33)
[2018-10-21] MEDS: DUONEB *Not for PRN Use IH SCH ×3 (02:29→13:05)
[2018-10-21] MEDS: HEPARIN SUB-Q SCH ×2 (06:03→14:00)
[2018-10-21 06:40] LABS: BUN/Creatinine Ratio 48; Blood Urea Nitrogen 24 mg/dL (7-17); Calcium 9.4 mg/dL (8.4-10.2); Hemolysis Index 5
[2018-10-21] MEDS: HumaLOG SUB-Q SCH ×2 (07:30→12:11)
--- NOTE | 2018-10-21 07:55 | XRay Report ---
AP CHEST: HISTORY: Followup right pneumothorax The right chest tube terminates in the right axillary soft tissues. No residual right pneumothorax is detected. Mild cardiomegaly and pulmonary venous congestion are stable. No large pleural effusion or infiltrates. IMPRESSION: No residual right pneumothorax is identified. Right chest tube terminates in the right axillary soft tissues.
[2018-10-21] MEDS: LANTUS SUB-Q SCH (11:49)
--- NOTE | 2018-10-21 11:49 | Discharge Summary ---
Providers - Providers Date of Admission: 10/17/18 15:19 Attending physician: YOMI RAMOS MD 10/17/18 10:57 Consult to Dietitian/Nutrition [CONS] Routine Physician Instructions: Reason For Exam: Reason for Consult: Evaluate nutritional intake Consult to Physician [CONS] Stat Comment: Consulting Provider: LIZET TOSCANO Physician Instructions: Reason For Exam: resp failure 10/18/18 09:10 Physical Therapy Evaluation and Treat [CONS] Routine Comment: Reason For Exam: mobility on MVS Hospitalization Condition: Critical Hospital course: 68F who is a [place] patient. She has a history of COPD, chronic respiratory failure, diabetes, hyperlipidemia, uterine cancer and hypertension. She was brought in by the EMS for altered mental status she was somnolent and obtunded upon arrival, [place] Coma Scale was 3 out of 10, she received bag valve mask ventilation and was intubated. She was also hypothermic, chest imaging showed a right-sided pneumothorax, emergent right-sided chest tube was placed. Apparently the patient was DO NOT RESUSCITATE per her family, but the EMS and ER were not aware of her code status * She was admitted to the ICU, she'll continue mechanical ventilator * The next day the family meeting was held, the decision was made to extubate to keep in mind the patient's wishes. She tolerated extubation well. * She was then transferred to the medical floors, the pneumothorax resolved and chest tube was removed. * She was set up with home hospice per her request. She'll subsequently discharged. DIAGNOSIS Acute hypercarbic and hypoxic respiratory failure Chronic hypoxic respiratory failure Right-sided tension pneumothorax Hypertensive urgency COPD, chronic and stable Uterine cancer DM DO NOT RESUSCITATE status Disposition: DC-50 TO HOSPICE (HOME) Time spent for discharge: 33 min Core Measure Documentation - Palliative Care Palliative Care/ Comfort Measures: Hospice Care - Core Measures Any of the following diagnoses?: none Exam - Constitutional Vitals: Temp Pulse Resp BP Pulse Ox 98.0 F 83 20 161/78 88 10/21/18 08:42 10/21/18 08:42 10/21/18 08:42 10/21/18 08:42 10/21/18 08:42 General appearance: Present: no acute distress, well-nourished - EENT Eyes: Present: PERRL ENT: hearing intact, clear oral mucosa - Neck Neck: Present: supple, normal ROM - Respiratory Respiratory effort: normal Respiratory: bilateral: diminished - Cardiovascular Heart Sounds: Present: S1 & S2. Absent: rub, click - Extremities Extremities: pulses symmetrical, No edema Peripheral Pulses: within normal limits - Abdominal General gastrointestinal: Present: soft, non-tender, non-distended, normal bowel sounds Female genitourinary: Present: normal - Integumentary Integumentary: Present: clear, warm, dry - Musculoskeletal Musculoskeletal: gait normal, strength equal bilaterally - Psychiatric Psychiatric: appropriate mood/affect, intact judgment & insight - Neurologic Neurologic: CNII-XII intact, moves all extremities Plan Follow up with: VICKY HYMAN [Other] - 3-5 Days Prescriptions: RX: ALBUTEROL NEB's [Proventil 0.083% NEBS] 2.5 mg IH Q4HRT PRN #120 nebu PRN Reason: Shortness Of Breath RX: oxyCODONE /ACETAMINOPHEN [Percocet 5/325 mg] 1 tab PO Q6H PRN #30 tablet PRN Reason: Pain, Moderate (4-6) Tiotropium [place] [Spiriva Respimat] 5 mcg IH DAILY #1 mist.inhal Other Discharge Orders: Nebulizer (Amb) Location: None Selected
[2018-10-21] MEDS: NORMODYNE PO SCH (11:56)
[2018-10-21] MEDS: HCTZ PO SCH (11:56)
[2018-10-21] MEDS: ZESTRIL PO SCH (11:56)
[2018-10-21 12:02] VITALS: BP 130/70
[2018-10-21] MEDS: DELTASONE PO SCH (12:12)
--- NOTE | 2018-10-21 13:33 | Progress Note ---
Assessment and Plan Acute on chronic hypoxemic respiratory failure Acute chronic obstructive pulmonary disease exacerbation Right pneumothorax, spontaneous s/p right pleural drain Morbid obesity Hyperkalemia Elevated serum glucose Pulmonary nodules Hypertensive urgency h/o Tobacco use disorder, quit 20 years ago Metabolic alkalosis Acute encephaloapthy ( toxic, metabolic) Hypothermia (at presentation) - Chest tube pulled at bedside - continue accuchecks with glycemic control per SSI for target blood glucose of 140-180mg/dL - continue VTE & Stress ulcer prophylaxis - Long acting insulin therapy initiated - complete antibiotics for severe COPD and possible pneumonia - continue to wean supplemental oxygen for O2 sats 88-90% - continue systemic steroids with slow taper - continue antihypertensives and other chronic disease med's per attending - prn CXR and ABG at this point - She will need outpatient follow up of pulmonary nodules, she is a high risk patient (She get's her care through the [facility]. Her community log manager is Dr. Abdalla) - discharge planning ok respiratory-hart Subjective Date of service: 10/21/18 Principal diagnosis: Ac on ch hypoxemic respiratory failure; AE-COPD; R. pneumothorax s/p CT Interval history: Patient is seen today for: Acute on chronic hypoxemic respiratory failure; Acute chronic obstructive pulmonary disease exacerbation; Right pneumothorax, spontaneous s/p right pleural drain; Morbid obesity Seen and examined at bedside; 24hour events reviewed; nursing and respiratory care staff consulted; no adverse overnight events reported to me; resting peacefully in bed; CXR without recurrent pneumothorax; visiting; denies acute chest pains or palpitations Objective Vital Signs - 12hr 10/21/18 10/21/18 10/21/18 02:30 02:39 04:05 Temperature 97.3 F L Pulse Rate 68 Pulse Rate [ 77 75 Anterior Bilateral Throughout] Respiratory 12 Rate Respiratory 18 18 Rate [Anterior Bilateral Throughout] Blood Pressure 151/74 O2 Sat by Pulse 92 Oximetry 10/21/18 10/21/18 10/21/18 08:42 11:56 11:59 Temperature 98.0 F 98.2 F Pulse Rate 83 83 77 Pulse Rate [ Anterior Bilateral Throughout] Respiratory 20 20 Rate Respiratory Rate [Anterior Bilateral Throughout] Blood Pressure 161/78 161/78 130/70 O2 Sat by Pulse 88 92 Oximetry Constitutional: no acute distress, alert, other (Obese, elderly CF normocephalic and atraumatic wit mildly increased respiratory effort at rest) Eyes: non-icteric, other (RANDY, EOMI) ENT: oropharynx moist, other (extubated) Neck: supple, no lymphadenopathy, other (large neck) Effort: mildly labored Ascultation: Bilateral: diminished breath sounds, rhonchi (bases), other (Poor air entry) Percussion: Bilateral: not dull Cardiovascular: regular rate and rhythm, other (S1,S2, no murmurs, gallops or rubs) Gastrointestinal: normoactive bowel sounds, soft, non-tender, non-distended, other (no hepatosplenomegaly) Integumentary: normal Extremities: no cyanosis, no edema, pink and warm, pulses normal, no ischemia or petechiae Neurologic: unable to assess (sedatd on propofol and fentanyl) Psychiatric: other CBC and BMP: 10/17/18 11:31 10/21/18 05:52 ABG, PT/INR, D-dimer: ABG POC ABG pH 7.383 (7.35-7.45) 10/18/18 09:31 POC ABG pCO2 95.0 (35-45) H 10/18/18 09:31 POC ABG pO2 101 (80-105) 10/18/18 09:31 POC ABG HCO3 56.6 10/18/18 09:31 POC ABG Total CO2 > 50 10/18/18 09:31 POC ABG O2 Sat 97 10/18/18 09:31 PT/INR, D-dimer PT 14.1 Sec. (12.2-14.9) 10/17/18 11:31 INR 1.05 (0.87-1.13) 10/17/18 11:31 D-Dimer 477.43 ng/mlDDU (0-234) H 10/17/18 14:55 Abnormal lab findings: Abnormal Labs 10/17/18 10/17/18 10/17/18 11:31 11:31 11:31 Hct 43.2 H RDW 16.2 H Seg Neuts % (Manual) 93.0 H Lymphocytes % (Manual) 4.0 L Seg Neutrophils # Man 8.6 H Lymphocytes # (Manual) 0.4 L APTT 20.1 L D-Dimer POC ABG pH POC ABG pCO2 POC ABG pO2 Sodium Potassium 5.8 H Chloride 86.5 L Carbon Dioxide 53 H* BUN Creatinine 0.4 L Glucose 347 H POC Glucose Lactic Acid Salicylates Acetaminophen 10/17/18 10/17/18 10/17/18 11:31 11:31 13:49 Hct RDW Seg Neuts % (Manual) Lymphocytes % (Manual) Seg Neutrophils # Man Lymphocytes # (Manual) APTT D-Dimer POC ABG pH 7.168 L POC ABG pCO2 > 130.0 H POC ABG pO2 67 L Sodium Potassium Chloride Carbon Dioxide BUN Creatinine Glucose POC Glucose Lactic Acid Salicylates < 0.3 L Acetaminophen < 5.0 L 10/17/18 10/17/18 10/17/18 13:59 14:55 14:55 Hct RDW Seg Neuts % (Manual) Lymphocytes % (Manual) Seg Neutrophils # Man Lymphocytes # (Manual) APTT D-Dimer 477.43 H POC ABG pH 7.176 L POC ABG pCO2 > 130.0 H POC ABG pO2 67 L Sodium Potassium Chloride Carbon Dioxide BUN Creatinine Glucose POC Glucose Lactic Acid 2.30 H* Salicylates Acetaminophen 10/17/18 10/17/18 10/18/18 15:19 17:44 00:02 Hct RDW Seg Neuts % (Manual) Lymphocytes % (Manual) Seg Neutrophils # Man Lymphocytes # (Manual) APTT D-Dimer POC ABG pH POC ABG pCO2 96.2 H POC ABG pO2 79 L Sodium Potassium Chloride Carbon Dioxide BUN Creatinine Glucose POC Glucose 347 H 207 H Lactic Acid Salicylates Acetaminophen 10/18/18 10/18/18 10/18/18 09:31 10:32 15:35 Hct RDW Seg Neuts % (Manual) Lymphocytes % (Manual) Seg Neutrophils # Man Lymphocytes # (Manual) APTT D-Dimer POC ABG pH POC ABG pCO2 95.0 H POC ABG pO2 Sodium Potassium Chloride Carbon Dioxide BUN Creatinine Glucose POC Glucose 227 H 210 H Lactic Acid Salicylates Acetaminophen 10/18/18 10/18/18 10/18/18 16:15 18:16 23:40 Hct RDW Seg Neuts % (Manual) Lymphocytes % (Manual) Seg Neutrophils # Man Lymphocytes # (Manual) APTT D-Dimer POC ABG pH POC ABG pCO2 POC ABG pO2 Sodium 149 H Potassium Chloride 94.4 L Carbon Dioxide 46 H* D BUN 34 H Creatinine Glucose 232 H POC Glucose 180 H 229 H Lactic Acid Salicylates Acetaminophen 10/19/18 10/19/18 10/19/18 04:06 05:59 12:50 Hct RDW Seg Neuts % (Manual) Lymphocytes % (Manual) Seg Neutrophils # Man Lymphocytes # (Manual) APTT D-Dimer POC ABG pH POC ABG pCO2 POC ABG pO2 Sodium Potassium Chloride 90.9 L Carbon Dioxide 40 H BUN 32 H Creatinine 0.5 L Glucose 227 H POC Glucose 185 H 250 H Lactic Acid Salicylates Acetaminophen 10/19/18 10/19/18 10/20/18 17:09 20:41 05:28 Hct RDW Seg Neuts % (Manual) Lymphocytes % (Manual) Seg Neutrophils # Man Lymphocytes # (Manual) APTT D-Dimer POC ABG pH POC ABG pCO2 POC ABG pO2 Sodium Potassium Chloride 91.3 L Carbon Dioxide 44 H* BUN 31 H Creatinine 0.6 L Glucose 163 H POC Glucose 217 H 166 H Lactic Acid Salicylates Acetaminophen 10/20/18 10/20/18 10/20/18 06:03 11:43 16:56 Hct RDW Seg Neuts % (Manual) Lymphocytes % (Manual) Seg Neutrophils # Man Lymphocytes # (Manual) APTT D-Dimer POC ABG pH POC ABG pCO2 POC ABG pO2 Sodium Potassium Chloride Carbon Dioxide BUN Creatinine Glucose POC Glucose 177 H 212 H 177 H Lactic Acid Salicylates Acetaminophen 10/20/18 10/21/18 10/21/18 20:48 05:52 12:08 Hct RDW Seg Neuts % (Manual) Lymphocytes % (Manual) Seg Neutrophils # Man Lymphocytes # (Manual) APTT D-Dimer POC ABG pH POC ABG pCO2 POC ABG pO2 Sodium Potassium Chloride 89.1 L Carbon Dioxide 46 H* BUN 24 H Creatinine 0.5 L Glucose 155 H POC Glucose 200 H 195 H Lactic Acid Salicylates Acetaminophen Allied health notes reviewed: nursing
== END 2018-10-21 17:40 | disposition hospice, home (50) | DRG 208 ==
LOC: ED 10:39 → CC1 15:19 → 4A 10-19 16:51
PROVIDERS: ADMIT Internal Medicine; ATTEND Internal Medicine
PROC: 5A1945Z Respiratory Ventilation, 24-96 Consecutive Hours (ICD-10-PCS; principal; 2018-10-17)
PROC: 0W9930Z Drainage of Right Pleural Cavity with Drainage Device, Percutaneous Approach (ICD-10-PCS; 2018-10-17)
PROC: 0BH17EZ Insertion of Endotracheal Airway into Trachea, Via Natural or Artificial Opening (ICD-10-PCS; 2018-10-17)
PROC: 4A033R1 Measurement of Arterial Saturation, Peripheral, Percutaneous Approach (ICD-10-PCS; 2018-10-17)
DX: J93.83 Other pneumothorax (principal); J96.21 Acute and chronic respiratory failure with hypoxia; G92 Toxic encephalopathy; J96.22 Acute and chronic respiratory failure with hypercapnia; J44.1 Chronic obstructive pulmonary disease with (acute) exacerbation; E87.3 Alkalosis; E66.01 Morbid (severe) obesity due to excess calories; E87.5 Hyperkalemia; R91.1 Solitary pulmonary nodule; I16.0 Hypertensive urgency; R68.0 Hypothermia, not associated with low environmental temperature; I10 Essential (primary) hypertension; Z66 Do not resuscitate; E78.5 Hyperlipidemia, unspecified; E11.65 Type 2 diabetes mellitus with hyperglycemia; Z68.39 Body mass index [BMI] 39.0-39.9, adult; Z87.891 Personal history of nicotine dependence; Z85.42 Personal history of malignant neoplasm of other parts of uterus; Z79.899 Other long term (current) drug therapy; Z82.49 Family history of ischemic heart disease and other diseases of the circulatory system
CPT/HCPCS: 36415; 36600; 70450; 71045; 71275; 74018; 74176; 80048; 80053; 80320; 81001; 82140; 82803; 82962; 84484; 85007; 85025; 85379; 85610; 85670; 85730; 86140; 87040; 87070; 87086; 87205; 93005; 93010; 94002; 94003; 94640; 94760; 99292; G0378; A9270-GY; G0480; J0133; J0456; J0696; J1100; J1120; J1644; J1815; J1940; J2001; J2060; J2704; J2930; J3010; J3370; J7030; J7040; J7050; J7512; Q9967